=== PATIENT | male | born 1945 | race Caucasian/White ===

== ENCOUNTER 2018-01-06 05:48 | Inpatient (IN) | payer MEDICARE, BC ==
--- NOTE | 2017-12-24 14:08 | HP ---
HISTORY AND PHYSICAL: DATE OF ADMISSION: 01/06/18 The patient coming into [facility] on 01/06/18 for right total knee replacement. CHIEF COMPLAINT: Right knee pain and deformity with limited walking distance. HISTORY OF PRESENT ILLNESS: The patient is long retired from [employer], now 72 years old and increasingly disabled with bilateral knee pains and deformity. We have recommended a right total knee replacement. His walking distance is 2 blocks, he does stairs with a railing, and his knees both awaken him at night at different times. PAST MEDICAL HISTORY: No heart attack, no chest pain. He is able to walk up 2 flights of stairs without chest pain, without shortness of breath. MEDICATIONS: His daily meds include: 1. Vitamins. 2. Aspirin 81 mg. 3. He is on 1 antihypertensive medication. 4. He is on 1 cholesterol medication. 5. He is on probiotics. He will be bringing his medications when he comes to the hospital. ALLERGIES: No allergies. FAMILY HISTORY: Negative for diabetes, cardiac, and cancer. SOCIAL HISTORY: He quit smoking in 1982. He has an occasional alcoholic beverage. He lives with his spouse. He is retired. Seven stairs to get into his home. REVIEW OF SYSTEMS: No stomach problems. No past blood transfusions. No hepatitis or exposure to AIDS. No liver problems. No kidney problems. No bladder problems. No cancers. PHYSICAL EXAMINATION GENERAL: Well nourished, well developed, not acutely distressed. HEENT: The head is NC/AT. LUNGS: Clear. HEART: The heart is regular. S1, S2 normal. No murmurs or gallops. ABDOMEN: Round, soft, nontender. There is no organomegaly. EXTREMITIES: He does a straight leg raise easily on each leg. The right leg shows varus of the knee. Antalgic gait on the right. The right foot has intact dorsalis pedis and posterior tibial pulses, both are 2+. The right knee extension -3 to 5 degrees, flexion with 115 degrees. Stable MCL, LCL, Aline, and posterior drawer. There is some medial joint tenderness, small effusion, and the thigh and calf are soft. There is no swelling bilaterally of the legs, ankles, and feet. NEUROLOGIC: The cranial nerves are grossly intact. IMPRESSION: Severe right knee arthritis. PLAN: Right total knee replacement. The risks and complications have been reviewed with him as well as the general course of hospitalization and his questions were answered. [id number]/[facility] [place] #: [id number] STEPHANIE
[~2018-01-06 05:48] MED LIST: Buffered Lidocaine 0.9% SYRIN* 5 ML/SYR SYRINGE INTRADERM ONE; Tranexamic Acid 1,000 MG in NS 0.9% 50 ML* (outpatient use) IV SCH
--- OUTSIDE RECORDS SUMMARY | 2018-01-06 05:53 | XMS REPORT ---
:1945 External Reference #:[id number] Author Organization [employer] Address [address] [facility] [place] [address] Phone [phone] Care Team Providers Name Role Phone Aiden Stark MD Primary Care Physician Unavailable Payers Type Date Identification Numbers Payment Provider Subscriber Medicare Primary Policy Number: [id number] Medicare Ousmane Covington PayID: [id number] [address] [place] [address] Medigap Part B Policy Number: [id number] [facility] Ousmane Covington PayID: [id number] [address] [place] [address] Problems Date Description Provider Status Onset: 12/24/2017 Localized, primary osteoarthritis Lukas Sargent M.D. Active Family History Date Family Member(s) Problem(s) Comments General Unknown Social History Type Date Description Comments Lives With Spouse Occupation Unemployed ETOH Use Occasionally consumes alcohol Smoking Patient is a former smoker Exercise Type/Frequency Exercises regularly Allergies, Adverse Reactions, Alerts Date Description Reaction Status Severity Comments 06/16/2017 NKDA active Medications Medication Date Status Form Strength Qnty SIG Indications Ordering Provider Aspirin Adult Active Unknown Low Dose 00 Ibuprofen 200 Active Tablets 200mg 400-600mg Unknown 00 every 6 hours as needed for pain. Medications Administered in Office Medication Date Status Form Strength Qnty SIG Indications Ordering Provider Depomedrol Administered Injection Dirk Arie, 40MG 018 M.D. Depomedrol Administered Injection Dirk Arie, 40MG 018 M.D. Depomedrol Administered Injection Leda 40MG 018 FRANCIA Marie Depomedrol Administered Injection Leda 40MG 018 FRANCIA Marie Vital Signs Date Vital Result Comment 12/24/2017 Height 69 inches 5'9" Weight 235.00 lb BP Systolic 134 mmHg BP Diastolic 74 mmHg Respiratory Rate 20 /min Body Temperature 97.5 F Pain Level 2 BMI (Body Mass Index) 34.7 kg/m2 10/06/2017 Height 69 inches 5'9" Weight 217.00 lb BP Systolic 144 mmHg BP Diastolic 70 mmHg Respiratory Rate 20 /min Pain Level 6 BMI (Body Mass Index) 32.0 kg/m2 06/16/2017 Height 69 inches 5'9" Weight 217.00 lb Heart Rate 68 /min BP Systolic 138 mmHg BP Diastolic 78 mmHg Respiratory Rate 18 /min Body Temperature 96.7 F Pain Level 4 BMI (Body Mass Index) 32.0 kg/m2 Results Test Date Test Result H/L Range Note CBC Auto Diff 12/24/2017 White Blood Count 5.7 10^3/uL 3.5-10.8 1 Red Blood Count 4.56 10^6/uL 4.00-5.40 1 Hemoglobin 14.9 g/dL 14.0-18.0 1 Hematocrit 44 % 42-52 1 Mean Corpuscular Volume 96 fL High 80-94 1 Mean Corpuscular Hemoglobin 33 pg High 27-31 1 Mean Corpuscular HGB Conc 34 g/dL 31-36 1 Red Cell Distribution Width 13 % 10.5-15 1 Platelet Count 270 10^3/uL 150-450 1 Mean Platelet Volume 6.5 um3 Low 7.4-10.4 1 Abs Neutrophils 3.6 10^3/uL 1.5-7.7 1 Abs Lymphocytes 1.3 10^3/uL 1.0-4.8 1 Abs Monocytes 0.5 10^3/uL 0-0.8 1 Abs Eosinophils 0.2 10^3/uL 0-0.6 1 Abs Basophils 0 10^3/uL 0-0.2 1 Abs Nucleated RBC 0 10^3/uL 1 Granulocyte % 64.5 % 38-83 1 Lymphocyte % 22.7 % Low 25-47 1 Monocyte % 9.4 % High 0-7 1 Eosinophil % 2.7 % 0-6 1 Basophil % 0.7 % 0-2 1 Nucleated Red Blood Cells % 0.1 1 Urinalysis Profile 12/24/2017 Urine Color Straw 1 Urine Appearance Clear 1 Urine Specific [place] 1.004 Low 1.010-1.030 1 Urine pH 5.0 5-9 1 Urine Urobilinogen Negative Negative 1 Urine Ketones Negative Negative 1 Urine Protein Negative Negative 1 Urine Leukocytes Negative Negative 1 Urine Blood Negative Negative 1 Urine Nitrite Negative Negative 1 Urine Bilirubin Negative Negative 1 Urine Glucose Negative Negative 1 Comp Metabolic Panel 12/24/2017 Sodium 137 mmol/L 135-145 1 Potassium 4.2 mmol/L 3.5-5.0 1 Chloride 102 mmol/L 101-111 1 Co2 Carbon Dioxide 29 mmol/L 22-32 1 Anion Gap 6 mmol/L 2-11 1 Glucose 95 mg/dL 70-100 1 Blood Urea Nitrogen 15 mg/dL 6-24 1 Creatinine 1.11 mg/dL 0.67-1.17 1 BUN/Creatinine Ratio 13.5 8-20 1 Calcium 9.4 mg/dL 8.6-10.3 1 Total Protein 7.0 g/dL 6.4-8.9 1 Albumin 4.5 g/dL 3.2-5.2 1 Globulin 2.5 g/dL 2-4 1 Albumin/Globulin Ratio 1.8 1-3 1 Total Bilirubin 0.40 mg/dL 0.2-1.0 1 Alkaline Phosphatase 64 U/L 34-104 1 Alt 30 U/L 7-52 1 Ast 24 U/L 13-39 1 Egfr Non- 65.5 >60 1 Egfr 79.2 >60 1, 2 Inr/Protime 12/24/2017 Inr 0.89 0.77-1.02 1 Laboratory test finding 12/24/2017 Partial Thrombo Time 27.7 seconds 26.0 -36.3 1, 3 PTT Type & Screen 12/24/2017 Patient Blood Type A Positive 1 Antibody Screen NEGATIVE 1 1 AA 01/06 2 Because ethnic data is not always readily available, this report includes an eGFR for both -Americans and non- Americans. The National Kidney Disease Education Program (NKDEP) does not endorse the use of the MDRD equation for patients that are not between the ages of 18 and 70, are , have extremes of body size, muscle mass, or nutritional status, or are non- or non-. According to the National Kidney Foundation, irrespective of diagnosis, the stage of the disease is based on the level of kidney function: Stage Description GFR(mL/min/1.73 m(2)) 1 Kidney damage with normal or decreased GFR 90 2 Kidney damage with mild decrease in GFR 60-89 3 Moderate decrease in GFR 30-59 4 Severe decrease in GFR 15-29 5 Kidney failure <15 (or dialysis) 3 AA 01/06 Procedures Date CPT Code Description Status 10/06/2017 Inject/Drain Joint/Bursa Major W/O US Completed 06/16/2017 Inject/Drain Joint/Bursa Major W/O US Completed Encounters Type Date Location Provider CPT E/M Dx Office Visit 10/06/2017 10:15a [facility] M.D. 77781 M17.11 Roel M17.12 Office Visit 06/16/2017 9:00a [facility] M.D. 08430 M17.11 Roel M17.12 Plan of Care Future Appointment(s):02/04/2018 9:15 am - Lukas Sargent M.D. at [facility]01/06/2018 7:30 am - ELISABETH Mtz at [facility]01/06/2018 7:30 am - Lukas Sargent M.D. at [facility]12/24/2017 - Lukas Sargent M.D.M17.11 Unilateral primary osteoarthritis, right kneeFollow up:Right total knee replacement 01/06/18 Stay active and exercise your drcfiW66.12 Unilateral primary osteoarthritis, left knee
--- OUTSIDE RECORDS SUMMARY | 2018-01-06 05:53 | XMS REPORT ---
:1945 External Reference #:[id number] Author Organization [employer] Address [address] [place] [address] Phone [phone] Care Team Providers Name Role Phone Aiden Stark MD Primary Care Physician Unavailable Payers Type Date Identification Numbers Payment Provider Subscriber Medicare Primary Policy Number: [id number] Medicare Ousmane Covington PayID: [id number] [address] [place] [address] Mediwhiteside Part B Policy Number: [id number] [facility] Ousmane Covington PayID: [id number] [address] [place] [address] Problems Description No Information Family History Date Family Member(s) Problem(s) Comments [...] BMI (Body Mass Index) 32.0 kg/m2 Results Description No Information Procedures Date CPT Code Description Status 10/06/2017 Inject/Drain Joint/Bursa Major W/O US Completed 06/16/2017 Inject/Drain Joint/Bursa Major W/O US Completed Encounters Type Date Location Provider CPT E/M Dx Office Visit 10/06/2017 10:15a [facility] M[facility]. 47385 M17.11 Roel M17.12 Office Visit 06/16/2017 9:00a [facility] M.D. 56340 M17.11 Roel M17.12 Plan of Care Future Appointment(s):02/04/2018 9:15 am - Lukas Sargent M.D. at [facility]01/06/2018 7:30 am - ELISABETH Mtz at [facility]01/06/2018 7:30 am - Lukas Sargent M.D. at [facility]
[2018-01-06] MEDS ORDERED: Dexamethasone IV* 4 MG/ML 1 ML (4 MG) IV SLOW PU ONE (06:00)
[2018-01-06] MEDS ORDERED: Famotidine IV* 10 MG/ML 2 ML (20 mg) IV ONE (06:00)
[2018-01-06] MEDS ORDERED: Famotidine IV* 10 MG/ML 2 ML (20 mg) ONE (06:09)
[2018-01-06] MEDS ORDERED: ceFAZolin 2 GM PREMIX in ORs 2 GM/50 ML BAG IVPB ONE (06:09)
[2018-01-06] MEDS ORDERED: Dexamethasone IV* 4 MG/ML 1 ML (4 MG) ONE (06:09)
[2018-01-06] MEDS ORDERED: fentaNYL* 50 MCG/ML 2 ML VIAL (100 MCG VIAL) ONE (07:08)
[2018-01-06] MEDS ORDERED: Midazolam* 1 MG/ML 2 ML VIAL (2 MG) ONE (07:08)
[2018-01-06] MEDS ORDERED: Bupivacaine 0.25% W/EPI* 10 ML SDV ONE (07:10)
[2018-01-06] MEDS ORDERED: Bupivacaine 0.5% SDV PF* 30ML VIAL ONE (07:11)
[2018-01-06] MEDS ORDERED: ROPIVACAINE 5 MG/ML 30 ML BTL (0.5%) ONE (07:17)
[2018-01-06] MEDS ORDERED: Lidocaine 1%* 5 ML VIAL ONE (07:17)
[2018-01-06] MEDS ORDERED: Propofol* 10 MG/ML 20 ML BTL IV PUSH ONE ×2 (08:22→09:33)
[2018-01-06] MEDS ORDERED: Lidocaine 2% PF * 5 ML VIAL ONE (08:22)
[2018-01-06] MEDS ORDERED: Bupivacaine-MPF SPINAL* 7.5 MG/ML - 2ML AMP ONE (08:22)
[2018-01-06] MEDS ORDERED: Ondansetron INJ* 2 MG/ML VIAL IV PRN (10:17)
[2018-01-06] MEDS ORDERED: Naloxone* 0.4 MG/ML 1 ML VIAL IV PRN (10:17)
[2018-01-06] MEDS ORDERED: HYDROcodone/ACETAMIN 5-325 MG* 1 TAB PO PRN (10:17)
[2018-01-06] MEDS ORDERED: DiMENhydriNATE IV* 50 MG/ML VIAL IV PUSH PRN (10:17)
[2018-01-06] MEDS ORDERED: Acetaminophen TAB* 325 MG PO PRN (10:17)
[2018-01-06] MEDS ORDERED: Ketorolac INJ* 30 MG/ML 1 ML VIAL IV PRN (10:17)
[2018-01-06] MEDS ORDERED: fentaNYL* 50 MCG/ML 2 ML VIAL (100 MCG VIAL) IV PRN (10:17)
[2018-01-06] MEDS ORDERED: Morphine VIAL* 4 MG/ML VIAL (1 ml vial) IV PRN (10:17)
[2018-01-06] MEDS ORDERED: Cyclobenzaprine TAB* 10 MG PO PRN (10:39)
[2018-01-06] MEDS ORDERED: Magnesium Hydroxide LIQ* 30 ML UDC PO PRN (10:39)
[2018-01-06] MEDS ORDERED: diPHENhydraMINE PO* 25 MG PO PRN (10:39)
[2018-01-06] MEDS ORDERED: Ondansetron TAB* 4 MG PO PRN (10:39)
[2018-01-06] MEDS ORDERED: Morphine INJ* 4 MG/ML 1 ML SYRINGE (NEW SYRINGE VERSION) IV PRN (10:39)
[2018-01-06] MEDS ORDERED: Ondansetron ODT TAB* 4 MG PO PRN (10:39)
[2018-01-06] MEDS ORDERED: oxyCODONE TAB* 5 MG TAB PO PRN ×2 (10:39→13:33)
[2018-01-06] MEDS ORDERED: Acetaminophen TAB* 325 MG PO SCH (11:00)
--- NOTE | 2018-01-06 11:18 | RAD ---
INDICATION: Status post total right knee replacement surgery. COMPARISON: Comparison is made with a prior study from October 06, 2017. TECHNIQUE: 2 views of the right knee were obtained. FINDINGS: The patient is status post total right knee replacement surgery. The bones and prostheses are in normal alignment. There are 2 surgical drains noted anterior. There are also multiple surgical antionette present anterior in the midline. IMPRESSION: STATUS POST TOTAL RIGHT KNEE REPLACEMENT SURGERY.
[2018-01-06] MEDS: traMADol TAB* 50 MG PO SCH ×3 (13:38→23:38)
[2018-01-06] MEDS: Hydrochlorothiazide TAB* 25 MG PO SCH ×2 (16:33→20:47)
[2018-01-06] MEDS: Spironolactone TAB* 25 MG PO SCH ×2 (16:34→20:46)
[2018-01-06] MEDS: ceFAZolin 1 GM in Dextrose (*) 1 GM/50 ML BAG IVPB SCH ×2 (16:51→23:42)
[2018-01-06] MEDS: Acetaminophen TAB* 325 MG PO SCH ×4 (16:55→23:38)
--- NOTE | 2018-01-06 17:21 | CONS ---
CC: Dr. Stark; Dr. Sargent CONSULTATION REPORT: DATE OF CONSULTATION: 01/06/18 PATIENT OF: Dr. Lukas Sargent. CONSULTED TO: Dr. Felipa Duong. PRIMARY CARE PHYSICIAN: Dr. Aiden Stark. REASON FOR CONSULTATION: Medical comanagement. HISTORY OF PRESENT ILLNESS: Mr. Coivngton is a 72-year-old gentleman with past medical history signifi cant for hypertension, and hyperlipidemia, who was admitted to the hospital earlier today after a rig ht total knee replacement. The patient had been followed by the orthopedic group of [facility], and multipl e attempts to relieve his bilateral knee pain has failed conservative treatment. He was found to be a good candidate to proceed with elective right total knee replacement for which he was admitted [facility] today. The patient was transferred from recovery room to the surgical short-stay unit in a stabl e condition and given his history of hypertension and hyperlipidemia, we were asked to see the patien t for medical comanagement. At the time of consultation, the patient was resting comfortably on bed. He denies any chest pain, headache, dizziness, nausea, vomiting, or any other symptoms. PAST MEDICAL HISTORY: Significant for: 1. Hypertension. 2. Hyperlipidemia. 3. He denies any history of coronary artery disease. PAST SURGICAL HISTORY: Prior to his knee replacement today, he has never had any surgeries in the [facility]. CURRENT MEDICATIONS: His medications at home include: 1. Amlodipine 10 mg p.o. q.h.s. 2. Aspirin 81 mg p.o. daily. 3. Probiotic 1 tablet p.o. daily. 4. Multivitamins 1 tablet p.o. daily. 5. Aleve 220 mg 2 tablets p.o. daily. 6. Simvastatin 20 mg p.o. q.h.s. 7. Spironolactone/hydrochlorothiazide 25/25, 1 tablet p.o. q.h.s. ALLERGIES: He has no known drug allergies. FAMILY HISTORY: Noncontributory. SOCIAL HISTORY: The patient is a former smoker, who quit smoking back in 1982. He drinks alcohol ra rely. 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 He lives with his . He wishes to be a full code, and he listed his as a healthcare proxy carrier. REVIEW OF SYSTEMS: See HPI. Otherwise, 12-point review of systems were examined and they were essen tially negative. PHYSICAL EXAM: General: He is a pleasant, older male, appears healthy and in no acute distress or d iscomfort at the time of admission. Vitals: Most recent set of vitals with temperature 97.8, blood pressure 147/74, pulse of 73, respirations of 16 with O2 sat of 98% on room air. HEENT: Head is nor mocephalic with a small abrasion on the right parietal area due to injury hitting a cabinet 2 days ag o. There is no surrounding erythema or ecchymosis. EOMs intact. PERRLA. Oropharynx is pink and dariusz st. Neck: Supple. Trachea midline. No cervical adenopathy or thyromegaly. Lungs: Clear to auscu ltation bilaterally. Heart: Regular rate and rhythm. Normal S1 and S2 without rubs, murmurs, or ga llops. Back: With normal curvature. No CVA tenderness. Abdomen: Soft, round, nontender, and nond istended. There are no hernias, masses, or hepatosplenomegaly. Extremities: Without cyanosis, clubb ing, or edema. Neurologic: He is awake, alert, and oriented x3. Tongue is midline, hand environmental services attendant is equ al bilaterally, and sensation is intact throughout. Rectal Exam: Deferred at this time. IMPRESSION: A 72-year-old gentleman with past medical history significant for hypertension, and hype rlipidemia as well as osteoarthritis, who is postop day #0, status post right total knee replacement, who was admitted under orthopedic services and hospitalist were consulted for medical comanagement f or the following. ASSESSMENT AND PLAN: 1. Hypertension. The patient appears to be normotensive in the postoperative period. He has no com plaints of chest pain or headache. I will continue his home regimen of Norvasc and spironolactone/hy drochlorothiazide as prescribed. We will continue to monitor his vitals per protocol. 2. Hyperlipidemia. Since his simvastatin is nonformulary, we will hold off his statin therapy for t he 2 days he is in the hospital and he will resume it once discharged. The patient is currently on a spirin 325 mg once daily. 3. Status post right total knee replacement. Management per orthopedic team. The patient has a Fol ey catheter that would likely be discontinued tomorrow morning and we will start physical therapy marielena orrow as well. His discharge planning is to go home and receive a shelter visit as well as P T at home hopefully on the following day. 4. Code status. He wishes to be a full code. TIME SPENT: Approximately 45 minutes was spent on consultation of this patient, for which greater th an 50% of that time taking history and performing physical exam. I went on and discussed the case wi th my attending, who agreed to plan of care and we will follow him up accordingly. ELISABETH MARTIN [id number]/[facility] #: [id number]
[2018-01-06] MEDS ORDERED: amLODIPine TAB* 5 MG PO SCH (18:00)
[2018-01-06] MEDS ORDERED: Spironolactone/HCTZ 25-25 MG* 1 TAB PO SCH (18:00)
[2018-01-06] MEDS: Magnesium Hydroxide LIQ* 30 ML UDC PO SCH (20:47)
[2018-01-06] MEDS: Docusate CAP* 100 MG PO SCH (20:47)
[2018-01-07] MEDS: traMADol TAB* 50 MG PO SCH ×2 (05:21→11:20)
[2018-01-07] MEDS: Acetaminophen TAB* 325 MG PO SCH ×3 (05:23→13:54)
[2018-01-07 07:09] LABS: Hematocrit 35 % (42-52); Hemoglobin 11.9 g/dl (14.0-18.0); Mean Platelet Volume 6.6 um3 (7.4-10.4); Platelet Count 248 10^3/ul (150-450)
--- NOTE | 2018-01-07 07:34 | OP ---
DATE OF OPERATION: 01/06/18 - ROOM #350 DATE OF : 49 SURGEON: Lukas Sargent MD [employer]BILE HOME LABORER: ELISABETH Mtz, medical assistant secretary. ANESTHESIOLOGIST: Dr. Hermelindo Gutierrez. ANESTHESIA: Right femoral canal block and spinal with IV sedation. PRE-OPERATIVE DIAGNOSIS: Severe degenerative arthritis of the right knee with bone- on-bone medial arthritis. POST-OPERATIVE DIAGNOSIS: Severe degenerative arthritis of the right knee with [id number] medial arthritis. OPERATIVE PROCEDURE: Right total knee replacement. COMPONENTS USED: Soraya Persona Knee was utilized, the components were a size 9 femur, a size 38 patella, a size F tibia, and a 10 articular surface. COMPLICATIONS: There were no complications. DRAINS: Two drains, right knee, at the end of the case. BLOOD LOSS: 200 mL. REPLACEMENT: Crystalloid fluids. OPERATIVE INDICATION: Severe knee arthritis with persistent pain and disability. It has been no longer responsive to nonoperative care. DESCRIPTION OF PROCEDURE: The patient was brought to the operating room and placed in the operating table in the supine position. Following the administration of the anesthetic, the right leg was noted to have a slight flexion contracture at the knee. The right leg was wrapped with the proximal thigh tourniquet and the right thigh and knee were given a preliminary chlorhexidine prep and then a formal and final prep with ChloraPrep from the tourniquet to the tips of the toes. After prepping, draping, and sealing off, we did our universal protocol time-out confirming Ousmane Wayland and a plan for right total knee replacement. We all agreed and we proceeded. The skin incision went from 2 fingerbreadths proximal to the superior pole of the patella to the medial aspect of the tibial tubercle. The surgical care was done without tourniquet except at the cleanup and cementing phase of the case. The surgery was done with the hip and knee acutely flexed, the right foot on a padded foot piece. Careful hemostasis checked and achieved throughout the case utilizing electrocautery. The skin incision went from the medial aspect of the tibial tubercle to 2 fingerbreadths proximal to the superior pole of the patella. The skin and subcu divided down to the bursa. The bursa was traversed. The knee was then entered medial parapatellar dividing the soft tissues on the tibia down to the bone, 2 cm medial to the tibial tubercle and up to the joint line up to the medial patella and then staying in the quad tendon but as close to vastus medialis tendon as possible, going 3 to 4 cm proximal to the superior pole of the patella. The patella was made so that could be everted. The knee had clear goldish synovial fluid. There was complete eburnation of bone on the medial femoral condyle and the medial tibial plateau, some scooping out of the medial tibial plateau, osteophytes, intercondylar and medial tibial plateau. The remains of the anterior horn of the medial meniscus were excised. The anteromedial soft tissues on the tibia were elevated subperiosteally going around to the deep MCL and then to the posteromedial corner of the knee. Parapatellar synovectomy was completed. The lateral meniscus was carefully excised. The ACL and PCL were uplifted from their femoral origins. The tibia was made so that it could be subluxated forward from under the femur and the PCL was carefully excised. Great care was taken while working posteriorly with careful hemostasis, and careful hemostasis was achieved on the lateral geniculate during the case as well. The distal anterior femur was exposed subperiosteally for referencing and measuring. The proximal tibial cut was made first and our goal here was to have a tibial surface to be perpendicular to the long axis of the tibia and have a slight posterior slope. We tried to remove a few millimeters from the medial side and about a centimeter from the lateral side. The femoral intramedullary drill was then utilized and the femur was suctioned to discourage embolization. The distal femoral cutting guide was applied on one with 6 degrees of valgus and the distal cuts were completed. The femur was measured for a size 9. The 9 was applied and the anterior, posterior, and chamfering cuts were completed. At this stage, we had nice ligamentous balance with a 10-mm block in extension and 90 degrees of flexion. We finished removal of the medial meniscus carefully preserving the MCL, finished removal of the posterior horn of the lateral meniscus, the PCL, osteophyte on the medial femoral condyle posteriorly. The femur was then completed with the intercondylar cut out and the tibia was completed for a size F. The knee was articulated and extended with an F tibia, 10 articular surface, and the 9 femur with full knee extension, stable ligaments in extension, and stable ligaments in 90 degrees of flexion. The patella was cut flat. A 38 was chosen. Three drill holes were made, these were undercut and a lateral release was not necessary. The knee had full extension, nice full flexion past 130 degrees at this stage. The femoral canal was cleaned x6 with saline, suctioned empty, and then the bone plug was inserted. The final components were then opened up. The knee was cleaned entirely in extension with pulse saline irrigation. The bony surfaces were then cleaned with the knee in flexion. The cement was mixed. The components were cemented into position, the patella, followed by tibia, followed by femur, each was impacted, excess cement was removed and the knee was articulated and extended during the final hardening. After the cement was hardened, small pieces of cement were carefully removed. We checked posteriorly. The tourniquet was deflated. We infiltrated the pericapsular tissues with Marcaine 0.25% with epinephrine 30 mL, posteromedially, medially, and laterally. We then proceeded with closure. Careful hemostasis was achieved during the closure. We irrigated with saline several times during the closure. The quad mechanism closed with interrupted #1 Polysorb in [id number] fashion. More distally, we used 0 Polysorb. The deep bursa and deep fascia, 0 Polysorb, and then on the superficial subcu, we used 3-0 Polysorb, and then antionette on the skin. The knee was flexed and extended several times during the closure. Full extension, knee flexion well past 130 degrees, and the dorsalis pedis pulses noted to be 2+ at the end of the case. The distal part of the skin incision had psoriasis that we went through and incorporated into our closure as well. The knee was then washed and dried and antionette covered with Betadine-soaked release, sterile gauze, sterile Webril, cryotherapy cuff, ABD pads, and then a 6 -inch Pablo bandage loosely applied. The drains were brought out superolaterally and they were also dressed in the similar manner. The patient was returned to the recovery room in stable and satisfactory condition having tolerated the procedure very well. [id number]/[facility] #: [id number] STEPHANIE
[2018-01-07 07:36] LABS: EGFR Non-African American 66.2 (>60)
[2018-01-07] MEDS: ceFAZolin 1 GM in Dextrose (*) 1 GM/50 ML BAG IVPB SCH (08:17)
[2018-01-07] MEDS: Docusate CAP* 100 MG PO SCH (08:18)
[2018-01-07] MEDS: Magnesium Hydroxide LIQ* 30 ML UDC PO SCH (08:18)
[2018-01-07] MEDS ORDERED: Aspirin TAB* 325 MG PO SCH (09:00)
--- NOTE | 2018-01-07 09:41 | PN ---
Progress Note - Progress Note Date of Service: 01/07/18 SOAP: Subjective: [] Patient seen and examined at bedside. He feels well and desires DC home today. Denies CP, SOB, dizziness, nausea. He has worked with PT but has not done stairs yet today. Objective: []General: Well appearing, NAD RLE: Right knee dressing CDI. Dr Sargent removed drains this morning without complication. Thigh is soft. DF/PF intact, DP 2+, sensation intact distally. BL LE calves supple and nontender without erythema, edema or palpable cords Assessment: []POD 1 sp right total knee arthroplasty Plan: []WBAT PT/OT ASA 325 mg QD DC home today Sodium 132 today, will need recheck tomorrow Vital Signs Temp 97.8 F 01/07/18 07:26 Pulse 73 01/07/18 07:26 Resp 18 01/07/18 08:19 BP 131/64 01/07/18 07:26 Pulse Ox 99 01/07/18 07:59 Intake & Output 01/06/18 01/07/18 01/07/18 18:59 06:59 18:59 Intake Total 2190 4135 1298 Output Total 1400 3450 Balance 153 065 5992 Intake: IV Fluids 600 1005 1088 ABX - CEFAZOLIN 55 108 LR 600 950 980 Oral 1590 3130 210 Output: DHEERAJ #1 150 Hemovac Amount #1 150 200 Garcia 1200 3100 Residual 50 Garcia 16 Fr 50 Other: # Bowel Movements 0 Estimated Stool Amount Medium Laboratory Last Values Hgb 11.9 g/dl (14.0-18.0) L 01/07/18 06:44 Hct 35 % (42-52) L 01/07/18 06:44 Plt Count 248 10^3/ul (150-450) 01/07/18 06:44 MPV 6.6 um3 (7.4-10.4) L 01/07/18 06:44 Sodium 132 mmol/L (135-145) L 01/07/18 06:44 Potassium 3.7 mmol/L (3.5-5.0) 01/07/18 06:44 Chloride 99 mmol/L (101-111) L 01/07/18 06:44 Carbon Dioxide 28 mmol/L (22-32) 01/07/18 06:44 Anion Gap 5 mmol/L (2-11) 01/07/18 06:44 BUN 17 mg/dL (6-24) 01/07/18 06:44 Creatinine 1.10 mg/dL (0.67-1.17) 01/07/18 06:44 Est GFR ( Amer) 80.1 (>60) 01/07/18 06:44 Est GFR (Non-Af Amer) 66.2 (>60) 01/07/18 06:44 BUN/Creatinine Ratio 15.5 (8-20) 01/07/18 06:44 Glucose 111 mg/dL (70-100) H 01/07/18 06:44 Calcium 8.7 mg/dL (8.6-10.3) 01/07/18 06:44
[2018-01-07 15:51] VITALS: BP 149/72
--- NOTE | 2018-01-08 08:53 | DS ---
AMENDED REPORT NOW INCLUDES DESIGNATED COSIGNER DISCHARGE SUMMARY: DATE OF ADMISSION: 01/06/18 DATE OF DISCHARGE: ATTENDING PROVIDER: Dr. 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 OPERATIVE PROCEDURE: Right total knee arthroplasty. HISTORY: Mr. Covington is a 72-year-old male with severe right knee arthritis that has no longer been responsive to nonoperative care. He elected to undergo a right total knee arthroplasty. HOSPITAL COURSE: The patient was admitted to [facility] on . He underwent a right total knee arthroplasty without complications. On postop day 1 he was well-appearing and in no acute distress. Right knee dressing was changed, incision clean, dry, and intact. Thigh was soft. Dorsiflexion and plantarflexion intact. Sensation intact. DP 2+ bilateral. Calf supple and nontender without erythema, edema, or palpable cords. He seemed to be medically and orthopedically stable for discharge home. DISCHARGE MEDICATIONS: Include: 1. Simvastatin 20 mg p.o. q.p.m. 2. Multivitamin. 3. Probiotic. 4. Spironolactone/hydrochlorothiazide 25/25 one every night. 5. Amlodipine 10 mg q. p.m. 6. Acetaminophen 975 mg p.o. q.8 hours p.r.n. 7. Aspirin 325 mg p.o. daily for 30 days. 8. Docusate 100 mg p.o. b.i.d. 9. Oxycodone 5 mg p.o. q.6 hours p.r.n. 10. Tramadol 50 mg p.o. q.6 hours p.r.n. Please hold your aspirin 81 mg until you have stopped taking the aspirin 325 mg which will be in 30 days and then restart your normal dose of 81 mg aspirin. DISCHARGE PLAN: The patient will be weightbearing as tolerated. He may shower starting tomorrow. Do not submerge the wound. Home nurse to remove the antionette in 10 to 12 days. Aspirin 325 mg for 30 days to prevent blood clots , repeat sodium level tomorrow. Pain control, tramadol 50 mg one to two tabs every 6 hours as needed for pain, max of 8 per day. May use oxycodone 5 mg every 6 hours for severe breakthrough pain, max of 2 tabs per day. Followup with Dr. Sargent in 4 to 6 weeks, call sooner with any issues. ELISABETH BRITO [id number]/[facility] #: [id number] [facility]IAL HOSPITALErnesto
[2018-01-08] MEDS ORDERED: Bisacodyl SUPP* 10 MG SUPP PR PRN (10:39)
== END 2018-01-07 15:50 | disposition home health service (06) | DRG 470 ==
LOC: AA 05:48 → SSU 12:19
PROVIDERS: ADMIT Orthopaedic Surgery; ATTEND Orthopaedic Surgery
PROC: 0SRC0J9 Replacement of Right Knee Joint with Synthetic Substitute, Cemented, Open Approach (ICD-10-PCS; principal; 2018-01-06 07:30)
DX: M17.11 Unilateral primary osteoarthritis, right knee (principal); M25.761 Osteophyte, right knee; I10 Essential (primary) hypertension; E78.5 Hyperlipidemia, unspecified; Z79.82 Long term (current) use of aspirin; Z79.899 Other long term (current) drug therapy; Z87.891 Personal history of nicotine dependence
CPT/HCPCS: 36415; 71046; 80048; 85014; 85018; 85049; 88305; 88311; 90686; A9270-GY; C1776; G8978-GP-CI; G8978-GP-CJ; G8979-GP-CI; G8980-GP-CI; G8987-GO-CJ; G8988-GO-CJ; G8989-GO-CJ; J0690; J1100; J2250; J2704; J2795; J3010

== ENCOUNTER 2018-05-26 05:32 | Inpatient (IN) | payer MEDICARE, BC ==
[~2018-05-26 05:32] MED LIST changes: -Buffered Lidocaine 0.9% SYRIN* 5 ML/SYR SYRINGE INTRADERM ONE; +Buffered Lidocaine 1% SYRIN* 1 ML/SYRINGE INTRADERM ONE
--- OUTSIDE RECORDS SUMMARY | 2018-05-26 05:35 | XMS REPORT | Continuity of Care Document ---
:1945 External Reference #:[id number] Author Name Sasha Beckford Care Team Providers Name Role Phone Aiden Stark MD Primary Care Physician Unavailable Payers Date Identification Numbers Payment Provider Subscriber Policy Number: [id number] Medicare Ousmane Covington PayID: [id number] [address] [place] [address] Policy Number: [id number] [facility] Ousmane Covington PayID: [id number] [address] [place] [address] Advance Directives Description No Information Available Problems Date Description Provider Status Onset: 12/24/2017 Localized, primary osteoarthritis Lukas Sargent M.D. Active Family History Date Family Member(s) Observation Comments General Unknown Social History Type Date Description Comments Sex Unknown Lives With Spouse Occupation Unemployed ETOH Use Occasionally consumes alcohol Tobacco Use Start: Unknown End: Patient is a former smoker Unknown Smoking Status Reviewed: 05/20/18 Patient is a former smoker Exercise Type/Frequency Exercises regularly Allergies, Adverse Reactions, Alerts Description No Known Drug Allergies Medications Medication Date Status Form Strength Qnty SIG Indications Ordering Provider Amlodipine / Active Tablets 10mg 1 by mouth Unknown Besylate 0000 every day Clobetasol / Active Lotion 0.05% use twice a Unknown Propionate 0000 day Simvastatin 00// Active Tablets 20mg 1 by mouth Unknown 0000 every day Spironolactone / Active Tablets 25-25mg 1 by mouth Unknown /Hydrochloroth 0000 every day iazide Probiotic / Active Capsules 1 by mouth Unknown Acidophilus 0000 every day Multivitamin 00/00/ Active Tablets Unknown Adults 0000 Benadryl / Active Capsules 25mg as direct, Unknown Allergy 0000 prn Aspirin Adult / Active Tablets DR 81mg 30tab 1 by mouth Unknown Low Dose 0000 s every day Docusate / Active Capsules 100mg 1 tab every Unknown Sodium 0000 12 hours as needed for constipation Metamucil / Active Packet 51.7% take daily. Unknown Fiber 0000 Aspirin / Active Tablets 325mg take 1 by Unknown 0000 mouth twice a day for two weeks Colace 01/07/ Hx Capsules 100mg 90cap 1 tab every Dirk 2017 - s 12 hours as Arie, 03/01/ needed for M.D. 2018 constipation Tramadol HCL 01/07/ Hx Tablets 50mg 56tab 1-2 tablets Dirk 2017 s by mouth Arie, 03/01/ every 4- 6 M.D. 2018 hours as needed pain. max 8 per day Oxycodone HCL 01/07/ Hx Tablets 5mg 10tab 1 tab every Dirk 2017 - s 4-6 hours as Arie, 03/01/ needed for M.D. 2018 pain mdd 2. May alternate with tramadol. Wean off as soon as possible Aspirin 17/ Hx Tablets 325mg 30tab 1 tab every Dirk 2017 - 24 hours for Arie, days M.D. 2017 Aspirin Adult / Hx Unknown Low Dose 0000 - 2018 Ibuprofen 200 / Hx Tablets 200mg 400-600mg Unknown 0000 - every 6 hours as needed for 2019 pain. Medications Administered in Office Medication Date Status Form Strength Qnty SIG Indications Ordering Provider Depomedrol Administered Injection Dirk Arie, 40MG 018 M.D. Depomedrol Administered Injection Dirk Arie, 40MG 018 M.D. Depomedrol Administered Injection Dirk Arie, 40MG 018 M.D. Depomedrol Administered Injection Leda 40MG 018 FRANCIA Marie Depomedrol Administered Injection Leda 40MG 018 FRANCIA Marie Immunizations Description No Information Available Vital Signs Date Vital Result Comment 05/20/2018 10:26am Height 68.50 inches 5'8.50" Weight 243.50 lb Heart Rate 68 /min BP Systolic 144 mmHg BP Diastolic 80 mmHg Respiratory Rate 16 /min Pain Level 3 BMI (Body Mass Index) 36.5 kg/m2 04/01/2018 10:01am Height 70 inches 5'10" Weight 230.00 lb BP Systolic 130 mmHg BP Diastolic 80 mmHg Pain Level 0 BMI (Body Mass Index) 33.0 kg/m2 03/02/2018 10:05am Height 70 inches 5'10" Weight 230.00 lb Respiratory Rate 16 /min Body Temperature 96.2 F Pain Level 4 BMI (Body Mass Index) 33.0 kg/m2 02/09/2018 3:09pm Height 69 inches 5'9" Weight 235.00 lb BP Systolic 142 mmHg BP Diastolic 76 mmHg Respiratory Rate 20 /min Body Temperature 98.0 F Pain Level 4 BMI (Body Mass Index) 34.7 kg/m2 12/24/2017 8:14am Height 69 inches 5'9" Weight 235.00 lb BP Systolic 134 mmHg BP Diastolic 74 mmHg Respiratory Rate 20 /min Body Temperature 97.5 F Pain Level 2 BMI (Body Mass Index) 34.7 kg/m2 10/06/2017 10:03am Height 69 inches 5'9" Weight 217.00 lb BP Systolic 144 mmHg BP Diastolic 70 mmHg Respiratory Rate 20 /min Pain Level 6 BMI (Body Mass Index) 32.0 kg/m2 06/16/2017 9:08am Height 69 inches 5'9" Weight 217.00 lb Heart Rate 68 /min BP Systolic 138 mmHg BP Diastolic 78 mmHg Respiratory Rate 18 /min Body Temperature 96.7 F Pain Level 4 BMI (Body Mass Index) 32.0 kg/m2 Results Test Date Facility Test Result H/L Range Note CBC Auto Diff 12/24/2017 [facility] White Blood 5.7 10^3/uL N 3.5-10.[address] [place] [address] [phone] Red Blood Count 4.56 10^6/uL N 4.00-5.40 Hemoglobin 14.9 g/dL N 14.0-18.0 Hematocrit 44 % N 42-52 Mean Corpuscular Volume 96 fL High 80-94 Mean Corpuscular Hemoglobin 33 pg High 27-31 Mean Corpuscular HGB Conc 34 g/dL N 31-36 Red Cell Distribution Width 13 % N 10.5-15 Platelet Count 270 10^3/uL N 150-450 Mean Platelet Volume 6.5 um3 Low 7.4-10.4 Abs Neutrophils 3.6 10^3/uL N 1.5-7.7 Abs Lymphocytes 1.3 10^3/uL N 1.0-4.8 Abs Monocytes 0.5 10^3/uL N 0-0.8 Abs Eosinophils 0.2 10^3/uL N 0-0.6 Abs Basophils 0 10^3/uL N 0-0.2 Abs Nucleated RBC 0 10^3/uL Granulocyte % 64.5 % N 38-83 Lymphocyte % 22.7 % Low 25-47 Monocyte % 9.4 % High 0-7 Eosinophil % 2.7 % N 0-6 Basophil % 0.7 % N 0-2 Nucleated Red Blood Cells % 0.1 Urinalysis Profile 12/24/2017 [facility] Urine Color [address] [place] [address] [phone] Urine Appearance Clear Urine Specific [place] 1.004 Low 1.010-1.030 Urine pH 5.0 N 5-9 Urine Urobilinogen Negative Negative Urine Ketones Negative Negative Urine Protein Negative Negative Urine Leukocytes Negative Negative Urine Blood Negative Negative Urine Nitrite Negative Negative Urine Bilirubin Negative Negative Urine Glucose Negative Negative Comp Metabolic Panel 12/24/2017 [facility] Sodium 137 mmol/L N 135-145 [address] [place] [address] [phone] Potassium 4.2 mmol/L N 3.5-5.0 Chloride 102 mmol/L N 101-111 Co2 Carbon Dioxide 29 mmol/L N 22-32 Anion Gap 6 mmol/L N 2-11 Glucose 95 mg/dL N 70-100 Blood Urea Nitrogen 15 mg/dL N 6-24 Creatinine 1.11 mg/dL N 0.67-1.17 BUN/Creatinine Ratio 13.5 N 8-20 Calcium 9.4 mg/dL N 8.6-10.3 Total Protein 7.0 g/dL N 6.4-8.9 Albumin 4.5 g/dL N 3.2-5.2 Globulin 2.5 g/dL N 2-4 Albumin/Globulin Ratio 1.8 N 1-3 Total Bilirubin 0.40 mg/dL N 0.2-1.0 Alkaline Phosphatase 64 U/L N 34-104 Alt 30 U/L N 7-52 Ast 24 U/L N 13-39 Egfr Non- 65.5 >60 Egfr 79.2 >60 2 Inr/Protime 12/24/2017 [facility] Inr 0.89 N 0.77-1.[address] [place] [address] [phone] Laboratory test 12/24/2017 [facility] Partial 27.7 seconds N 26.0-36.[address] [place] [address] PTT [phone] Type & Screen 12/24/2017 [facility] Patient A Positive [address] [place] [address] [phone] Antibody Screen NEGATIVE Urine Culture And 12/24/2017 [facility] Urine Culture SEE RESULT [address] [place] [address] [phone] 1 AA 01/06 2 Because ethnic data [...] failure <15 (or dialysis) 3 AA 01/06 4 SEE RESULT BELOW Name: OUSMANE COVINGTON SR : [address]: Lukas Sargent MD Acct: [id number] Unit: [id number] AGE: 72 Location: PAT Re12/24/17 SEX: M Status: REG REF SPEC: [id number] WATSON: 12/24/17 [facility] DR: Lukas Sargent MD REQ: [id number] RECD: 12/24/17 STATUS: GARY HALE DR: Aiden Stark MD _ SOURCE: URINE SPDESC: ORDERED: Urine Culture COMMENTS: GAVIOTA 01/06 QUERIES: Urine Source: Clean Catch Procedure Result Reported Site Urine Culture Final 12/25/17- 1155 ML No Growth (<1,000 CFU/mL) * ML - Main Lab . END OF REPORT DEPARTMENT OF PATHOLOGY, [address] [place] [address] Castillo Coleman M.D. Director [facility] # [id number] Procedures Date Code Description Status 03/02/2018 Inject/Drain Joint/Bursa Major W/O US Completed 01/06/2018 39730 TKR Total Knee Replacement Completed 01/06/201878330 TKR Total Knee Replacement Completed 12/24/2017 84356 EKG, Interpretation Only Completed 10/06/2017 Inject/Drain Joint/Bursa Major W/O US Completed 06/16/2017 Inject/Drain Joint/Bursa Major W/O US Completed Encounters Type Date Location Provider Dx Diagnosis Office Visit 04/01/2018 [facility] Lukas Sargent M.D. M17.12 Unilateral 10:15a Of [facility]. primary osteoarthritis, left knee Office Visit 01/06/2018 [facility] Z47.89 Encounter for 10:43a Assoc,ELISABETH Nice other orthopedic Hospitalists aftercare Z96.651 Presence of right artificial knee joint I10 Essential (primary) hypertension E78.5 Hyperlipidemia, unspecified Office Visit 12/24/2017 [facility] Lukas Sargent, M17.11 Unilateral primary 8:30a Services Of M.D. osteoarthritis, right C.M.A. knee M17.12 Unilateral primary osteoarthritis, left knee Office Visit 10/06/2017 [facility] Lukas Sargent M17.11 Unilateral primary 10:15a Services Of MBhaskarDBhaskar osteoarthritis, right C.M.A. knee M17.12 Unilateral primary osteoarthritis, left knee Office Visit 06/16/2017 Orthopedic Lukas Sargent M17.11 Unilateral primary 9:00a Services Of M.D. osteoarthritis, right C.M.A. knee M17.12 Unilateral primary osteoarthritis, left knee Plan of Treatment Future Appointment(s):06/17/2018 10:45 am - Lukas Sargent M.D. at [facility]05/26/2018 7:30 am - ELISABETH Mtz at [facility]05/26/2018 7:30 am - Lukas Sargent M.D. at [facility]05/20/2018 - Domitila Izquierdo, [facility]-CM17.12 Unilateral primary osteoarthritis, left kneeFollow up:Follow up: 3-4 weeks post op with Arie
--- OUTSIDE RECORDS SUMMARY | 2018-05-26 05:35 | XMS REPORT | Continuity of Care Document ---
:1945 External Reference #:[id number] Author Name Taya Cordon Care Team Providers Name Role Phone Aiden Stark MD Primary Care Physician Unavailable Payers Date Identification Numbers Payment Provider Subscriber Policy Number: [id number] Medicare Rosa Covington PayID: [id number] [address] [place] [address] Policy Number: [id number] [facility] Rosa Covington PayID: [id number] [address] [place] [address] Advance Directives Description No Information Available Problems [...] Tablets 5mg 10tab 1 tab every Dirk 2018 - s 4-6 hours as Arie, 03/01/ [...] Date Facility Test Result H/L Range Note Inr/Protime 05/22/2018 [facility] Inr 0.86 N 0.77-1.[address] [place] [address] [phone] Laboratory test 05/22/2018 [facility] Partial 27.3 seconds N 26.0-36.[address] [place] [address] PTT [phone] Urinalysis 05/22/2018 [facility] Urine [place] [address] [phone] Urine Appearance Clear Urine Specific [place] 1.009 Low 1.010-1.030 Urine pH 6.0 N 5-9 Urine Urobilinogen Negative Negative Urine Ketones Negative Negative Urine Protein Negative Negative Urine Leukocytes Negative Negative Urine Blood Negative Negative Urine Nitrite Negative Negative Urine Bilirubin Negative Negative Urine Glucose Negative Negative CBC Auto Diff 05/22/2018 [facility] White Blood 5.6 10^3/uL N 3.5-10.[address] [place] [address] [phone] Red Blood Count 4.53 10^6/uL N 4.00-5.40 Hemoglobin 14.5 g/dL N 14.0-18.0 Hematocrit 42 % N 42-52 Mean Corpuscular Volume 94 fL N 80-94 Mean Corpuscular Hemoglobin 32 pg High 27-31 Mean Corpuscular HGB Conc 34 g/dL N 31-36 Red Cell Distribution Width 13 % N 10.5-15 Platelet Count 276 10^3/uL N 150-450 Mean Platelet Volume 6.8 fL Low 7.4-10.4 Abs Neutrophils 3.4 10^3/uL N 1.5-7.7 Abs Lymphocytes 1.3 10^3/uL N 1.0-4.8 Abs Monocytes 0.6 10^3/uL N 0-0.8 Abs Eosinophils 0.2 10^3/uL N 0-0.6 Abs Basophils 0 10^3/uL N 0-0.2 Abs Nucleated RBC 0 10^3/uL Granulocyte % 61.0 % Lymphocyte % 23.4 % Monocyte % 11.2 % Eosinophil % 3.8 % Basophil % 0.6 % Nucleated Red Blood Cells % 0 Comp Metabolic Panel 05/22/2018 [facility] Sodium 138 mmol/L N 135-[address] [place] [address] [phone] Potassium 4.2 mmol/L N 3.5-5.0 Chloride 102 mmol/L N 101-111 Co2 Carbon Dioxide 29 mmol/L N 22-32 Anion Gap 7 mmol/L N 2-11 Glucose 106 mg/dL High 70-100 Blood Urea Nitrogen 26 mg/dL High 6-24 Creatinine 1.58 mg/dL High 0.67-1.17 BUN/Creatinine Ratio 16.5 N 8-20 Calcium 9.3 mg/dL N 8.6-10.3 Total Protein 7.1 g/dL N 6.4-8.9 Albumin 4.5 g/dL N 3.2-5.2 Globulin 2.6 g/dL N 2-4 Albumin/Globulin Ratio 1.7 N 1-3 Total Bilirubin 0.40 mg/dL N 0.2-1.0 Alkaline Phosphatase 66 U/L N 34-104 Alt 22 U/L N 7-52 Ast 23 U/L N 13-39 Egfr Non- 43.6 >60 Egfr 52.7 >60 3 Type & Screen 05/22/2018 [facility] Patient Blood Type A Positive [address] [place], [place] [address] [phone] Antibody Screen NEGATIVE Urine Culture And 05/22/2018 [facility] Urine Culture SEE RESULT [address] [place] [address] [phone] Comp Metabolic 12/24/2017 [facility] Sodium 137 mmol/L N 135- 14 [address] [place] [address] [phone] Potassium 4.2 mmol/L N 3.5-5.0 Chloride 102 [...] Egfr Non- 65.5 >60 Egfr 79.2 >60 6 Inr/Protime 12/24/2017 [facility] Inr 0.89 N 0.77-1.[address] [place] [address] [phone] Laboratory test 12/24/2017 [facility] Partial 27.7 seconds N 26.0-36.3 [address] [place] [address] PTT [phone] Type & Screen 12/24/2017 [facility] Patient A Positive [address] [place] [place] [address] [phone] Antibody Screen NEGATIVE Urine Culture And 12/24/2017 [facility] Urine Culture SEE RESULT [address] [place] [address] [phone] Urinalysis Profile 12/24/2017 [facility] Urine Color Straw [address] [place] [address] [phone] Urine Appearance Clear Urine Specific [place] 1.004 Low 1.010-1.030 Urine pH 5.0 N 5-9 Urine Urobilinogen Negative Negative Urine Ketones Negative Negative Urine Protein Negative Negative Urine Leukocytes Negative Negative Urine Blood Negative Negative Urine Nitrite Negative Negative Urine Bilirubin Negative Negative Urine Glucose Negative Negative CBC Auto Diff 12/24/2017 [facility] White Blood 5.7 10^3/uL N 3.5-10.[address] [place] [address] [phone] Red Blood Count 4.56 10^6/uL N 4.00-5.40 [...] 0-2 Nucleated Red Blood Cells % 0.1 1 AA 3/5 2 AA 3/5 3 Because ethnic data is not always readily [...] 15-29 5 Kidney failure <15 (or dialysis) 4 SEE RESULT BELOW Name: ROSA COVINGTON SR : [address]: Lukas Sargent MD Acct: [id number] Unit: [id number] AGE: 72 Location: [facility] Re05/22/18 SEX: M Status: REG REF SPEC: [id number] WATSON: 05/22/18-[address]: Lukas Sargent MD REQ: [id number] RECD: 05/22/18 STATUS: COMP _ SOURCE: URINE SPDESC: ORDERED: Urine Culture COMMENTS: GAVIOTA05/26 QUERIES: Urine Source: Clean Catch Procedure Result Reported Site Urine Culture Final 05/23/18- 1230 ML Few Enterobacteriacae; possible contamination. * ML - Main Lab . END OF REPORT DEPARTMENT OF PATHOLOGY, [address] [place] [address] Castillo Coleman M.D. Director [facility] # [id number] 01/06 6 Because ethnic data is not always readily [...] 15-29 5 Kidney failure <15 (or dialysis) 7 01/06 8 SEE RESULT BELOW Name: CRISTIANROSA SR : [address]: Lukas Sargent MD Acct: [id number] Unit: [id number] AGE: 72 Location: [facility] Re12/24/17 SEX: M Status: REG REF SPEC: [id number] WATSON: 12/24/[address] [facility] [address]: Lukas Sargent MD REQ: [id number] RECD: 12/24/17120 STATUS: GARY HALE DR: Aiden Stark MD _ SOURCE: URINE SPDESC: ORDERED: Urine Culture COMMENTS: 01/06 QUERIES: Urine Source: Clean Catch Procedure Result Reported Site Urine Culture Final 12/25/17- 1155 ML No Growth (<1,000 CFU/mL) * ML - Main Lab . END OF REPORT DEPARTMENT OF PATHOLOGY, [address] [place] [address] Castillo Coleman M.D. Director [facility] # [id number] Procedures Date Code Description Status 03/02/2018 Inject/Drain Joint/Bursa Major W/O US Completed 01/06/2018 33524 TKR Total Knee Replacement Completed 01/06/2018 66085 TKR Total Knee Replacement Completed 12/24/2017 62960 EKG, Interpretation Only Completed 10/06/2017 Inject/Drain Joint/Bursa Major W/O US Completed 06/16/2017 Inject/Drain Joint/Bursa Major W/O US Completed Encounters Type Date Location Provider Dx Diagnosis Office Visit 04/01/2018 [facility] Lukas Sargent M.D. M17.12 Unilateral 10:15a Of [place] primary osteoarthritis, left knee Office Visit 01/06/2018 [facility] Z47.89 Encounter for 10:43a lisa Oro PA other orthopedic Hospitalists aftercare Z96.651 Presence of right artificial knee joint I10 Essential (primary) hypertension E78.5 Hyperlipidemia, unspecified Office Visit 12/24/2017 Orthopedic Lukas Sargent, M17.11 Unilateral primary 8:30a Services Of M.D. osteoarthritis, right C.M.A. knee M17.12 Unilateral primary osteoarthritis, left knee Office Visit 10/06/2017 Orthopedic Lukas Sargent, M17.11 Unilateral primary 10:15a Services Of M.D. osteoarthritis, right C.M.A. knee M17.12 Unilateral primary osteoarthritis, left knee Office Visit 06/16/2017 Orthopedic Lukas Sargent, M17.11 Unilateral primary 9:00a Services Of M.D. osteoarthritis, right C.M.A. knee M17.12 Unilateral primary osteoarthritis, left knee Plan of Treatment Future Appointment(s):06/17/2018 10:45 am - Lukas Sargent M.D. at [facility]05/26/2018 7:30 am - ELISABETH Mtz at [facility]05/26/2018 7:30 am - Lukas Sargent M.D. at [facility]05/20/2018 - Domitila Izquierdo [facility]-CM17.12 Unilateral primary osteoarthritis, left kneeFollow up:Follow up: 3-4 weeks post op with Arie
[2018-05-26] MEDS ORDERED: Dexamethasone IV* 4 MG/ML 1 ML (4 MG) IV SLOW PU ONE (06:00)
[2018-05-26] MEDS ORDERED: Acetaminophen IV 1GM/100ML * 1,000 MG/100 ML VIAL IVPB ONE (06:00)
[2018-05-26] MEDS ORDERED: Famotidine IV* 10 MG/ML 2 ML (20 mg) IV ONE (06:00)
[2018-05-26] MEDS ORDERED: Gabapentin CAP(*) 300 MG PO ONE (06:00)
[2018-05-26] MEDS ORDERED: Lactated Ringers 1000 ML Bag* 1,000 ML IV SCH (06:00)
[2018-05-26] MEDS ORDERED: celeCOXIB CAP* 200 MG PO ONE (06:00)
[2018-05-26] MEDS ORDERED: celeCOXIB CAP* 100 MG ONE (06:12)
[2018-05-26] MEDS ORDERED: Gabapentin CAP(*) 300 MG ONE (06:12)
[2018-05-26] MEDS ORDERED: ceFAZolin 2 GM PREMIX in ORs 2 GM/50 ML BAG IVPB ONE (06:12)
[2018-05-26] MEDS ORDERED: Dexamethasone IV* 4 MG/ML 1 ML (4 MG) ONE (06:12)
[2018-05-26] MEDS ORDERED: Famotidine IV* 10 MG/ML 2 ML (20 mg) ONE (06:13)
[2018-05-26] MEDS ORDERED: Acetaminophen IV 1GM/100ML * 100 ML ONE (06:15)
[2018-05-26] MEDS ORDERED: Bupivacaine 0.5% W/EPI SDV* 30 ML VIAL ONE (06:50)
[2018-05-26] MEDS ORDERED: Ondansetron INJ* 2 MG/ML VIAL ONE (07:04)
[2018-05-26] MEDS ORDERED: Midazolam* 1 MG/ML 5 ML VIAL (5 MG) ONE ×3 (07:04→11:41)
[2018-05-26] MEDS ORDERED: KETAMINE HCL* 50 MG/ML 10 ML VIAL ONE (07:04)
[2018-05-26] MEDS ORDERED: Bupivacaine 0.5% SDV PF* 30ML VIAL ONE (07:04)
[2018-05-26] MEDS ORDERED: Propofol* 10 MG/ML 20 ML BTL ONE ×2 (07:04→09:57)
[2018-05-26] MEDS ORDERED: Phenylephrine INJ* 10 MG/ML 1 ML VIAL (10 MG) ONE (07:05)
[2018-05-26] MEDS ORDERED: ROPIVACAINE 5 MG/ML 30 ML BTL (0.5%) ONE (07:16)
[2018-05-26] MEDS ORDERED: fentaNYL* 50 MCG/ML 2 ML VIAL (100 MCG VIAL) IV PRN (09:16)
[2018-05-26] MEDS ORDERED: HYDROmorphone INJ1* 1 MG/ML SYRINGE IV PRN (09:16)
[2018-05-26] MEDS ORDERED: Naloxone* 0.4 MG/ML 1 ML VIAL IV PRN (09:16)
[2018-05-26] MEDS ORDERED: Ondansetron INJ* 2 MG/ML VIAL IV PRN ×2 (09:16→10:38)
[2018-05-26] MEDS ORDERED: DiMENhydriNATE IV* 50 MG/ML VIAL IV PUSH PRN (09:16)
[2018-05-26] MEDS ORDERED: Morphine VIAL* 4 MG/ML VIAL (1 ml vial) IV PRN (10:38)
[2018-05-26] MEDS ORDERED: Cyclobenzaprine TAB* 10 MG PO PRN (10:38)
[2018-05-26] MEDS ORDERED: diPHENhydraMINE IV* 50 MG/ML 1 ml VIAL (BENADRYL) IV PRN (10:38)
[2018-05-26] MEDS ORDERED: diPHENhydraMINE PO* 25 MG PO PRN (10:38)
[2018-05-26] MEDS ORDERED: Lidocaine 2% PF * 5 ML VIAL ONE (11:41)
[2018-05-26] MEDS: Lactated Ringers 1000 ML Bag* 1,000 ML IV SCH ×2 (12:24→22:36)
[2018-05-26] MEDS ORDERED: Propofol* 500 MG/50 ML BTL ONE ×2 (12:26→13:09)
[2018-05-26] MEDS: oxyCODONE TAB* 5 MG TAB PO PRN ×2 (13:23→18:04)
--- NOTE | 2018-05-26 13:43 | CONS ---
CC: Dr. Aiden Stark; Dr. Lukas Sargent * CONSULTATION REPORT: DATE OF CONSULT: 05/26/18 PRIMARY CARE PROVIDER: Dr. Aiden Stark. REQUESTING PHYSICIAN IN CONSULT: Dr. Lukas Sargent. ATTENDING PHYSICIAN: Dr. Ramírez Marquez (dictated by Odilia Lazaro NP). REASON FOR CONSULT: Co-medical management. HISTORY OF PRESENT ILLNESS: I will refer you to the history and physical by ELISABETH Cosme, for complete details, but in short, Mr. Covington is a 72-year- old male with past medical history of hypertension and hyperlipidemia, who presents to [facility] today for an elective left total knee arthroplasty. He underwent a right total knee arthroplasty in December 2017. He recovered from that surgery well. Thus since that time, his left knee has had an increasing amount of pain. He ultimately failed conservative management and elected to proceed with the left total knee arthroplasty with Dr. Sargent. He has a history of hypertension for which he has taken amlodipine, spironolactone, and hydrochlorothiazide for a number of years. He reports that his blood pressure is well controlled on these medications. He denies any dizziness, headache, or changes in vision. He also taken simvastatin for a number of years for his hyperlipidemia. He reports that his primary checks his lipids early during his physical and that his last lipid panel showed good control. On my exam in the PACU, the patient denies any pain. He reports a "heavy" sensation in his lower extremities, though no discomfort. His is at the bedside and participating in the exam. PAST MEDICAL HISTORY: 1. Hypertension. 2. Hyperlipidemia. PAST SURGICAL HISTORY: 1. Right total knee arthroplasty, December 2017. 2. Left total knee arthroplasty, today. HOME MEDICATIONS: 1. Acetaminophen 975 mg p.o. q.8 hours p.r.n. pain. 2. Amlodipine 10 mg p.o. at bedtime. 3. Aspirin 81 mg p.o. at bedtime. 4. Probiotic 1 tab p.o. at bedtime. 5. Multivitamin 1 tablet p.o. at bedtime. 6. Simvastatin 20 mg p.o. at bedtime. 7. Spironolactone/hydrochlorothiazide 25/25 mg 1 tab p.o. at bedtime. ALLERGIES: LISINOPRIL. FAMILY HISTORY: The patient denies any family history of heart disease, diabetes, or cancer. SOCIAL HISTORY: The patient has a distant smoking history. He reports a rare alcohol use less than once per year. He denies any recreational drug use. He is retired and lives at home with his . His , Gianna, will be his surrogate decision maker in the event he is unable to make his own decisions. REVIEW OF SYSTEMS: An 11-point review of systems was performed and all the pertinent positive and negative findings are in the HPI. All other systems are negative. PHYSICAL EXAM: General: Mr. Covington is a well-developed, well-nourished overweight, elderly white male laying in bed in no acute distress. He appears his stated age. Vital Signs: Temp 96.8, heart rate 61, respiratory rate 17, oxygen saturations 100% on 2 L nasal cannula, blood pressure 127/75. HEENT: Head is atraumatic, normocephalic. Visual buckley are grossly intact. Sclerae without icterus. Oral mucous membranes are most and without lesions. Neck: Full range of motion. Trachea midline. Respiratory: Symmetrical chest expansion. No chest wall deformities. Lungs: Clear to auscultation throughout. No rhonchi, wheezes, or rubs. Cardiovascular: Regular rate and rhythm. S1, S2 present. No murmurs, rubs, or gallops. Extremities: Skin warm and smooth bilaterally. No edema. No clubbing or cyanosis. Pedal pulses are 2+ bilaterally. Musculoskeletal: Full range of motion of upper extremities. Lower lower extremities were not tested. Abdomen: Soft, nontender to palpation. Bowel sounds normoactive throughout. Neuro: Awake, alert, and oriented x4. Cranial nerves II through XII grossly intact. Moves all extremities. Skin: There is a surgical dressing intact to the left knee. DIAGNOSTIC STUDIES/LAB DATA: The patient had lab work on 05/22/18 which shows WBC 5.6, RBC 4.53, hemoglobin 14.5, hematocrit 42, platelets 276. INR 0.86. Sodium 138, potassium 4.2, chloride 102, carbon dioxide 29, BUN 26, creatinine 1.58, glucose is 106. Urinalysis unremarkable. Chest x-ray on 05/22/18 reveals there is no active cardiopulmonary disease. EKG on 05/22/18 shows normal sinus rhythm with a rate of 52, QTc 418. ASSESSMENT AND PLAN: Mr. Covington is a 72-year-old male with past medical history of hypertension and hyperlipidemia who presents to [facility] today for an elective left total knee arthroplasty. The patient will be admitted inpatient for: 1. Status post left total knee arthroplasty. Management per Ortho. 2. Hypertension. In the PACU, the patient's blood pressure was well controlled , around 120/70. I would recommend that he restart his amlodipine, spironolactone, and hydrochlorothiazide tomorrow so long as he is not hypotensive. 3. Hyperlipidemia. I would recommend continuing the patient's simvastatin. There is no need to check lipid panel at this point. 4. Elevated creatinine. The patient's creatinine on 05/22/18 was elevated at 1.58. The last creatinine record is from 01/07/18 and was 1.1. It is not clear what the elevation is from, though the patient may have been slightly dehydrated if he was fasting for the labs. At this point, I am not extremely concerned. I would recommend checking a BMP tomorrow, though I suspect with the fluids he received after surgery, his creatinine will likely normalize tomorrow. 5. FEN: Fluids will be under the discretion of the orthopedic team. The patient can have a regular diet. 6. Code status. The patient will be a full code. 7. DVT prophylaxis. Per Ortho. Thank your for this consultation, we will continue to follow along distantly to ensure the patient's blood pressure is under control and his creatinine returns to baseline. TIME SPENT: Approximately 45 minutes was spent on this consultation, greater than half of that time spent [id number] with the patient and his obtaining my history, performing my physical exam, and reviewing the plan of care. This case has been reviewed with my attending, Dr. Marquez, who is in agreement with the plan of care. ODILIA LAZARO, STATIC BALANCER [id number]/[facility] #: [id number] STEPHANIE
--- NOTE | 2018-05-26 14:47 | OP ---
CC: Dr. Aiden Stark, [facility] * DATE OF OPERATION: 05/26/18 - ROOM #343 DATE OF : 49 SURGICAL CARE: Left knee. SURGEON: Lukas Sargent MD ASSISTANTS: 1. ELISABETH Mtz, field assistant. 2. Dee Arroyo, surgical training specialist. ANESTHESIOLOGIST: Dr. Jarret Powell. ANESTHESIA: Left femoral canal block and spinal anesthetic with IV sedation. PRE-OP DIAGNOSIS: Severe arthritis of the left knee with [id number]-og-uril medially and varus alignment. POST-OP DIAGNOSIS: Severe arthritis of the left knee with [id number] medially and varus alignment. OPERATIVE PROCEDURE: Left total knee replacement. IMPLANTS: The Soraya Persona knee was utilized to size 10 femur, a size 38 patella, a size G tibia with a small extension, and a size 10 articular surface. COMPLICATIONS: There were no complications. DRAINS: Two drains, left knee, at the end of the case. BLOOD LOSS: 200 mL. REPLACEMENT: Crystalloid fluids. OPERATIVE INDICATIONS: Severe arthritis of the knee with [id number] medially with a malalignment and the patient has had years of trouble and has failed nonoperative care. DESCRIPTION OF PROCEDURE: The patient was, after being in the holding area where the canal block was done, brought to the operating room, placed on the operating room table in supine position, then into a sitting position for the anesthetic, then returned to the supine position. A Garcia catheter was carefully inserted and the left proximal thigh was wrapped with a tourniquet. The left dorsalis pedis and posterior tibial pulses were noted to be 2+. The left had a slight flexion contracture. The proximal thigh tourniquet was applied on the left side. The leg was given a preliminary chlorhexidine prep and then a final formal prep from the tourniquet to the tips of the toes. After prepping, draping, and sealing off, we did our universal protocol time- out confirming Ousmane Covington and the plan for left total knee replacement. We all agreed and we proceeded. The surgical care was done with the hip and knee acutely flexed with the left foot on a padded footpiece and no tourniquet was utilized until the cleanup and cementing phase of the case, which was about 30 minutes. The skin incision went from the medial aspect of the tibial tubercle to 2 fingerbreadths proximal to the superior pole of the patella. Careful hemostasis was checked and achieved throughout the case utilizing electrocautery. Skin and subcu divided down to the prepatellar bursa. The bursa was traversed. The knee was entered medial parapatellar dividing the quad tendon at the junction of the rectus femoris and the vastus medialis going 3 to 4 cm proximal to the superior pole of the patella. On the tibia, the soft tissues were divided down to the bone going 2 cm medial to the tibial tubercle and then up to the joint line. The joint had scant goldish synovial fluid. He had complete eburnation of bone on the medial femoral condyle, medial tibial plateau with osteophytes on both, osteophytes in the intercondylar notch, the trochlea and the lateral joint as well. The remains of the anterior horn of medial meniscus were removed. The anteromedial soft tissues on the tibia were elevated subperiosteally going around to the posteromedial corner of the knee, carefully preserving the MCL. Some medial synovectomy was completed. The lateral meniscus was carefully excised. The intercondylar notch osteophytes were removed. The ACL and PCL were uplifted from their femoral origins and the tibia was made so that it could be subluxated forward from under the femur. The proximal tibial cut was made first. Our goal here was to have a tibial surface that would be perpendicular to the long axis of the tibia removing a couple of millimeters on the medial side and a 10 to 12 mm on the lateral side and have a slight posterior slope to this cut. On the femoral side, we used the femoral intramedullary drill. The canal was suctioned to discourage embolization. The distal femoral cutting guide was applied with 6 degrees of valgus on #1 for slight flexion contracture and the distal femoral cut was completed. The femur was measured for a size 10. These cuts were completed and we then finished removal of the posterior horn of medial meniscus carefully preserving the MCL, the PCL, posterior horn of lateral meniscus. We had nice ligamentous balance in extension with a 10-mm block and in 90 degrees of flexion with a 10-mm block. The femur was completed with the intercondylar cutout. The femoral canal was then cleaned x6 with saline, suctioned empty, and a bone plug was inserted. The tibia was completed for a size G and the knee was articulated and extended with a G tibia, 10 articular surface and the 10 femur with full knee extension, stable ligaments in extension, and stable ligaments in 90 degrees of flexion. The patella was cut flat. The 38 was chosen. Three drill holes were made, these were undercut, and a lateral release was not necessary. The final components were open. The leg was exsanguinated, the tourniquet elevated to 375. The knee was cleaned with pulse saline in extension and then in flexion and the bony surfaces were all cleaned with pulse saline. All surfaces were dried. The cement was mixed and the components were cemented into position, patella followed by tibia followed by femur. Each component was impacted. Excess cement was removed and the knee was articulated and extended during the final hardening. Then, the knee was flexed, the tourniquet was deflated. We checked posteriorly for retained cement fragments. We infiltrated the pericapsular tissues with Marcaine 0.5% with epinephrine posteromedially, medially and laterally. The closure was then done and we irrigated with saline during the closure. The drains were brought out through superolateral suprapatellar pouch. The quad mechanism closed with interrupted #1 Vicryl in a vmhglk-fg-fcyar fashion, the same with the medial retinaculum more distally we closed with 0 Vicryl. The deep fascia and deep bursa closed with interrupted 0 Vicryl and then on the superficial subcu used 3-0 Vicryl and then antionette on the skin. The skin was washed and dried and covered with Betadine- soaked release followed by sterile gauze. The drains were treated the same way and then sterile Webril. A cryotherapy cuff was applied. ABD pads and a 6-inch Pablo bandage were loosely applied. The knee was completely extended and completely flexed several times during the closure to make sure we did not have anything tethered. The dorsalis pedis pulse was 2+ at the end of the case. The patient was returned to the recovery room in stable and satisfactory condition, having tolerated the procedure very well. [id number]/[facility] #: [id number] STEPHANIE
--- NOTE | 2018-05-26 16:25 | PN ---
Progress Note - Progress Note Date of Service: 05/26/18 Note: Patient seen at bedside POD [address] Sargent. Pain is well controlled. Denies CP, SOB, dizziness, nausea or history of DVT. Dressing is CDI, DF/PF intact, DP2+, sensation intact to light touch distally. Intends to go home tomorrow after goals are met with PT.
[2018-05-26] MEDS: traMADol TAB* 50 MG PO SCH ×2 (16:29→22:37)
[2018-05-26] MEDS: Acetaminophen TAB* 325 MG PO SCH (16:29)
[2018-05-26] MEDS: ceFAZolin 1 GM in Dextrose (*) 1 GM/50 ML BAG IVPB SCH (16:34)
[2018-05-26] MEDS: Aspirin TAB* 325 MG PO SCH (18:04)
[2018-05-26] MEDS: Atorvastatin* 10 MG TAB PO SCH (22:37)
[2018-05-26] MEDS: amLODIPine TAB* 5 MG PO SCH (22:37)
[2018-05-26] MEDS: Docusate CAP* 100 MG PO SCH (22:37)
[2018-05-26] MEDS: Multivitamins/Minerals TAB PO SCH (22:37)
[2018-05-26] MEDS: ACIDOPH PARACASEI B LACTIS PO SCH (22:38)
[2018-05-26] MEDS: Spironolactone/HCTZ 25-25 MG* 1 TAB PO SCH (22:41)
[2018-05-27] MEDS: ceFAZolin 1 GM in Dextrose (*) 1 GM/50 ML BAG IVPB SCH ×2 (00:14→08:06)
[2018-05-27] MEDS: Acetaminophen TAB* 325 MG PO SCH ×4 (00:15→23:51)
[2018-05-27] MEDS: oxyCODONE TAB* 5 MG TAB PO PRN ×3 (00:16→11:41)
[2018-05-27] MEDS: traMADol TAB* 50 MG PO SCH ×4 (04:15→21:50)
[2018-05-27 06:13] LABS: Hematocrit 34 % (42-52); Hemoglobin 11.6 g/dl (14.0-18.0); Mean Platelet Volume 6.3 fL (7.4-10.4); Platelet Count 257 10^3/ul (150-450)
[2018-05-27 06:30] LABS: Calcium 8.3 mg/dL (8.6-10.3); EGFR Non-African American 79.3 (>60); Potassium 3.9 mmol/L (3.5-5.0)
--- NOTE | 2018-05-27 08:04 | PN ---
Progress Note - Progress Note Date of Service: 05/27/18 SOAP: Subjective: []Pt seen at bedside. He feels very well and desires DC home today. Pain is well controlled. Denies CP, SOB, dizziness or nausea. Objective: []General: NAD, well appearing LLE: 2 drains pulled from left knee with tip intact and tolerated well by patient. Thigh is soft, DF/PF intact, DP2+, sensation intact to light touch distally Calves supple and nontender without erythema, edema or palpable cords Assessment: []POD 1 sp LTK Plan: []WBAT PT/OT ASA 325 qd x 30 days Desires DC home today, DC as long as able to urinate and meets goals with PT Will need fu sodium recheck within 3 days Vital Signs Temp 98.3 F 05/27/18 03:54 Pulse 67 05/27/18 03:54 Resp 18 05/27/18 07:43 BP 125/68 05/27/18 03:54 Pulse Ox 100 05/27/18 07:43 Intake & Output 05/26/18 05/27/18 05/27/18 18:59 06:59 18:59 Intake Total 1140 2025 Output Total 1400 3090 150 Balance -260 -1065 -150 Intake: IV Fluids 900 1045 ABX - CEFAZOLIN 55 LR 900 990 Oral 240 980 Output: Hemovac Amount #1 240 Garcia 1400 2850 150 Laboratory Last Values Hgb 11.6 g/dl (14.0-18.0) L 05/27/18 06:07 Hct 34 % (42-52) L 05/27/18 06:07 Plt Count 257 10^3/ul (150-450) 05/27/18 06:07 MPV 6.3 fL (7.4-10.4) L 05/27/18 06:07 Sodium 131 mmol/L (135-145) L 05/27/18 06:07 Potassium 3.9 mmol/L (3.5-5.0) 05/27/18 06:07 Chloride 100 mmol/L (101-111) L 05/27/18 06:07 Carbon Dioxide 28 mmol/L (22-32) 05/27/18 06:07 Anion Gap 3 mmol/L (2-11) 05/27/18 06:07 BUN 15 mg/dL (6-24) 05/27/18 06:07 Creatinine 0.94 mg/dL (0.67-1.17) 05/27/18 06:07 Est GFR ( Amer) 96.0 (>60) 05/27/18 06:07 Est GFR (Non-Af Amer) 79.3 (>60) 05/27/18 06:07 BUN/Creatinine Ratio 16.0 (8-20) 05/27/18 06:07 Glucose 121 mg/dL (70-100) H 05/27/18 06:07 Calcium 8.3 mg/dL (8.6-10.3) L 05/27/18 06:07
[2018-05-27] MEDS: Docusate CAP* 100 MG PO SCH ×2 (08:06→21:07)
[2018-05-27] MEDS: Lactated Ringers 1000 ML Bag* 1,000 ML IV SCH (09:43)
[2018-05-27] MEDS: Magnesium Hydroxide LIQ* 30 ML UDC PO PRN ×2 (10:08→21:10)
--- NOTE | 2018-05-27 10:20 | PN ---
Progress Note - Progress Note Date of Service: 05/27/18 Note: POD 1. VSStable. X-ray left knee post op all satisfactory. Intake and output satisfactory. Hct 34%. Na 131. Awake, alert, coorperative and responsive. Breathing easily. Patient seen @ 0700. Able to leg raise left. Moves left ankle up and down. Stable and doing well. Home today.
--- NOTE | 2018-05-27 14:55 | DS ---
DISCHARGE SUMMARY: DATE OF ADMISSION: 05/26/18 DATE OF DISCHARGE: 05/27/18 ATTENDING SURGEON: Dr. Sargent * (DICTATED BY ELISABETH BRITO) PRE-OP DIAGNOSIS: Severe end-stage osteoarthritis of the left knee. OPERATIVE PROCEDURE: Left total knee arthroplasty. HISTORY: Mr. Covington is a 72-year-old male with years of increasingly severe left knee pain. He failed conservative management and elected to undergo a left total knee arthroplasty. HOSPITAL COURSE: The patient was admitted to [facility] on . He underwent a left total knee arthroplasty without complication. Postop day 1, he was well appearing, in no acute distress. Dressing was changed. Incision was clean, dry, and intact without erythema or discharge. Dorsiflexion and plantarflexion intact. DP pulse 2+. Sensation intact to light touch distally. Two drains were pulled from the left knee with tip intact , tolerated well by the patient. Lab studies showed hemoglobin 11.6, hematocrit 34, sodium 131. MEDICATIONS: Patient's medications include: 1. Simvastatin 20 mg. 2. Multivitamin 1 cap. 3. Probiotic 1 cap p.o. at bedtime. 4. Spironolactone/hydrochlorothiazide 25/25 p.o. at bedtime. 5. Amlodipine 10 mg p.o. at bedtime. 6. Aspirin 81 mg p.o. at bedtime. 7. Acetaminophen 975 mg p.o. q.8 hours p.r.n. 8. Aspirin 325 mg p.o. q.24 hours. 9. Docusate 100 mg p.o. b.i.d. 10. Oxycodone 10 mg p.o. q.4 hours p.r.n. 11. Aspirin 81 mg tabs to be resumed after the 325 mg tab is done. DISCHARGE PLAN: The patient will be weightbearing as tolerated. Make appointment with ortho office to remove the antionette in 10 to 12 days. Aspirin 325 mg daily for 30 days; hold your dose of aspirin 81 mg while you are on the 325, resume thereafter. Sodium recheck within 3 days. Pain control: Oxycodone 5 mg 1 to 2 tabs every 4 to 6 hours as needed for pain, max daily dose of 10. Follow up with Dr. Sargent in 4 to 6 weeks. DISPOSITION: He was discharged to home on 05/27/18. JODI TAYLOR, ELISABETH [id number]/[facility] #: [id number] [facility]GE[facility] STATE HOSPITALErnesto
[2018-05-27] MEDS: Aspirin TAB* 325 MG PO SCH (18:16)
[2018-05-27] MEDS: Multivitamins/Minerals TAB PO SCH (21:06)
[2018-05-27] MEDS: amLODIPine TAB* 5 MG PO SCH (21:07)
[2018-05-27] MEDS: ACIDOPH PARACASEI B LACTIS PO SCH (21:07)
[2018-05-27] MEDS: Spironolactone/HCTZ 25-25 MG* 1 TAB PO SCH (21:07)
[2018-05-27] MEDS: Atorvastatin* 10 MG TAB PO SCH (21:07)
[2018-05-28] MEDS: oxyCODONE TAB* 5 MG TAB PO PRN ×2 (02:55→06:44)
[2018-05-28] MEDS: Ondansetron ODT TAB* 4 MG PO PRN ×2 (02:56→08:45)
[2018-05-28] MEDS: traMADol TAB* 50 MG PO SCH ×2 (04:01→10:13)
[2018-05-28 05:22] LABS: Hematocrit 29 % (42-52); Hemoglobin 10.2 g/dl (14.0-18.0); Mean Platelet Volume 6.2 fL (7.4-10.4); Platelet Count 200 10^3/ul (150-450)
[2018-05-28] MEDS: Docusate CAP* 100 MG PO SCH (08:41)
[2018-05-28] MEDS: Acetaminophen TAB* 325 MG PO SCH (08:41)
--- NOTE | 2018-05-28 10:41 | PN ---
Progress Note - Progress Note Date of Service: 05/28/18 SOAP: Subjective: []Pt seen at bedside. He is feeling well today without CP, SOB, dizziness, nausea, headache or confusion. Left knee pain is well controlled. Objective: [] General: NAD, well appearing, carrying on appropriate conversation and desires DC home. LLE: left knee dressing changed, incision CDI. Thigh is soft, DF/PF intact, DP2+ , sensation intact to light touch distally Calves supple and nontender without erythema, edema or palpable cords Assessment: []POD 2 sp LTK Plan: []WBAT PT/OT ASA 325 qd x 30 days DC home today hyponatremia discussed with hospitalist: Check TSH before dc, Fluid restrict to 1L today, check morning sodium and cortisol tomorrow with PCP follow up Vital Signs Temp 98.7 F 05/28/18 07:46 Pulse 73 05/28/18 07:46 Resp 18 05/28/18 10:13 BP 153/68 05/28/18 07:46 Pulse Ox 94 05/28/18 08:00 Intake & Output 05/27/18 05/28/18 05/28/18 18:59 06:59 18:59 Intake Total 2119 540 Output Total 1775 600 Balance 344 -60 Intake: IV Fluids 1886 LR 1886 IVPB 113 ABX - CEFAZOLIN 113 Oral 120 540 Output: Urine 825 600 Garcia 150 Straight Cath 800 Other: Estimated Void Large Large # Voids 1 Laboratory Last Values Hgb 10.2 g/dl (14.0-18.0) L 05/28/18 05:09 Hct 29 % (42-52) L 05/28/18 05:09 Plt Count 200 10^3/ul (150-450) 05/28/18 05:09 MPV 6.2 fL (7.4-10.4) L 05/28/18 05:09 Sodium 125 mmol/L (135-145) L 05/28/18 05:12 Potassium 3.9 mmol/L (3.5-5.0) 05/27/18 06:07 Chloride 100 mmol/L (101-111) L 05/27/18 06:07 Carbon Dioxide 28 mmol/L (22-32) 05/27/18 06:07 Anion Gap 3 mmol/L (2-11) 05/27/18 06:07 BUN 15 mg/dL (6-24) 05/27/18 06:07 Creatinine 0.94 mg/dL (0.67-1.17) 05/27/18 06:07 Est GFR ( Amer) 96.0 (>60) 05/27/18 06:07 Est GFR (Non-Af Amer) 79.3 (>60) 05/27/18 06:07 BUN/Creatinine Ratio 16.0 (8-20) 05/27/18 06:07 Glucose 121 mg/dL (70-100) H 05/27/18 06:07 Calcium 8.3 mg/dL (8.6-10.3) L 05/27/18 06:07
[2018-05-28 12:58] VITALS: BP 148/68
[2018-05-28 13:32] LABS: T4, Total 10.94 mcg/dL (6.09-12.23)
[2018-05-28 13:36] LABS: TSH (Thyroid Stimulating Horm) 1.96 mcIU/mL (0.34-5.60)
--- NOTE | 2018-05-28 21:00 | DS ---
DISCHARGE SUMMARY: ADDENDUM: DATE OF DISCHARGE: 05/28/18 HOSPITAL COURSE: The patient was seen at bedside on postop day#2. He was well appearing, in no acute distress. Dressing was changed. Incision was clean, dry and intact. The patient stayed overnight dueto urinary retentionand required straight cath 05/27/18; 05/28/18, he was urinating well on his own. Labs on postop day #2 included hemoglobin 10.2, hematocrit 29, sodium 125. Discussed hyponatremia with the hospitalist service who recommended checking a TSH prior to discharge. TSH was 1.96. Further recommendation was to limit the patient's fluid intake today to 1 L and to check a morning sodium as well as cortisol. This was ordered as an outpatient and the patient will follow up with his PCP tomorrow. He was asymptomatic. ELISABETH BRITO ADDENDUM: CONDITION OF PATIENT AT DISCHARGE: Stable. ELISABETH BRITO [id number]/[facility] #: [id number]/[facility] #: [id number] STEPHANIE
--- NOTE | 2018-06-01 09:45 | DS ---
DISCHARGE SUMMARY: DATE OF ADMISSION: DATE OF DISCHARGE: ADDENDUM: CONDITION OF PATIENT AT DISCHARGE: Stable. ELISABETH BRITO [id number]/[facility] #: [id number] MTDD
== END 2018-05-28 14:10 | disposition home or self-care (01) | DRG 470 ==
LOC: AA 05:32 → SSU 10:38
PROVIDERS: ADMIT Orthopaedic Surgery; ATTEND Orthopaedic Surgery
PROC: 0SRD0J9 Replacement of Left Knee Joint with Synthetic Substitute, Cemented, Open Approach (ICD-10-PCS; principal; 2018-05-26 07:30)
DX: M17.12 Unilateral primary osteoarthritis, left knee (principal); E87.1 Hypo-osmolality and hyponatremia; I10 Essential (primary) hypertension; Z96.651 Presence of right artificial knee joint; M21.162 Varus deformity, not elsewhere classified, left knee; J30.2 Other seasonal allergic rhinitis; R94.4 Abnormal results of kidney function studies; E66.9 Obesity, unspecified; E78.5 Hyperlipidemia, unspecified; M25.762 Osteophyte, left knee; N40.0 Benign prostatic hyperplasia without lower urinary tract symptoms; Z72.89 Other problems related to lifestyle; Z87.891 Personal history of nicotine dependence; Z98.52 Vasectomy status; Z86.010 Personal history of colon polyps; Z88.8 Allergy status to other drugs, medicaments and biological substances; Z68.35 Body mass index [BMI] 35.0-35.9, adult; Z79.82 Long term (current) use of aspirin
CPT/HCPCS: 36415; 80048; 84300; 84436; 84443; 85014; 85018; 85049; 88305; 88311; A9270-GY; C1776; G8978-GP-CJ; G8979-GP-CI; J0690; J1100; J2250; J2405; J2704; J2795

== ENCOUNTER 2018-06-08 15:01 | Emergency (ER) | payer MEDICARE, BC ==
--- OUTSIDE RECORDS SUMMARY | 2018-06-08 15:25 | XMS REPORT | Continuity of Care Document ---
:1945 External Reference #:[id number] Author Name Sasha Beckford Care Team Providers Name Role Phone Aiden Stark MD Primary Care Physician Unavailable Payers Date Identification Numbers Payment Provider Subscriber Policy Number: [id number] Medicare Ousmane Covington PayID: [id number] [address] [place] [address] Policy Number: [id number] [facility] Ousmane Covington PayID: [id number] [address] [place] [address] Advance Directives Description No Information Available Problems Date Description Provider Status Onset: 06/08/2018 Arthroplasty of knee Lukas Sargent M.D. Active Onset: 12/24/2017 Localized, primary osteoarthritis Lukas Sargent M.D. Active Family History Date Family Member(s) Observation Comments General Unknown Social History Type Date Description Comments Sex Unknown Lives With Spouse Occupation Unemployed ETOH Use Occasionally consumes alcohol Tobacco Use Start: Unknown End: Patient is a former smoker Unknown Smoking Status Reviewed: 06/08/18 Patient is a former smoker Exercise Type/Frequency Exercises regularly Allergies, Adverse Reactions, Alerts Description No Known Drug Allergies Medications Medication Date Status Form Strength Qnty SIG Indications Ordering Provider Aspirin Adult 05/27/ Active Tablets 325mg 30tab take 1 tab a Dirk 2019 s day for 4 Arie, weeks M.D. Oxycodone HCL 05/27/ Active Capsules 5mg 60cap 1 - 2 tabs by Dirk 2019 s mouth every 4 Arie, - 6 hours M.D. Colace 05/27/ Active Capsules 100mg 60cap take as Dirk 2019 s needed to Arie, stimulated M.D. bowel movement. Amlodipine / Active Tablets 10mg 1 by mouth Unknown Besylate 0000 every day Clobetasol / Active Lotion 0.05% use twice a Unknown Propionate 0000 day Simvastatin // Active Tablets 20mg 1 by mouth Unknown 0000 every day Spironolactone / Active Tablets 25-25mg 1 by mouth Unknown /Hydrochloroth 0000 every day iazide Probiotic / Active Capsules 1 by mouth Unknown Acidophilus 0000 every day Multivitamin / Active Tablets Unknown Adults 0000 Benadryl / [...] Tablets 50mg 56tab 1-2 tablets Dirk 2017 - s by mouth Arie, 03/01/ every 4- 6 M.D. 2018 hours as needed pain. max 8 per day Oxycodone HCL 01/07/ Hx Tablets 5mg 10tab 1 tab every Dirk 2018 - s 4-6 hours as Arie, 03/01/ needed for M.D. 2018 pain mdd 2. July alternate with tramadol. Wean off as soon as possible Aspirin 1017/ Hx Tablets 325mg 30tab 1 tab every Dirk 2018 - s 24 hours for Arie, days M.D. 2018 Aspirin Adult // Hx Unknown Low Dose 0000 - 2018 Ibuprofen 200 / Hx Tablets 200mg 400-600mg Unknown 0000 - every 6 hours 05/19/ as needed for 2019 pain. Medications Administered in Office Medication Date Status Form Strength Qnty SIG Indications Ordering Provider Depomedrol Administered Injection Dirk Arie, 40MG 018 M.D. Depomedrol Administered Injection Dirk Arie, 40MG 018 M.D. Depomedrol Administered Injection Dirk Arie, 40MG 018 M.DBhaskar Depomedrol Administered Injection Leda 40MG 018 FRANCIA Marie Depomedrol Administered Injection Leda 40MG 018 FRANCIA Marie Immunizations Description No Information Available Vital Signs Date Vital Result Comment 06/08/2018 10:51am Height 68.50 inches 5'8.50" Weight 243.00 lb BP Systolic 132 mmHg BP Diastolic 78 mmHg Respiratory Rate 20 /min Body Temperature 97.8 F Pain Level 5 BMI (Body Mass Index) 36.4 kg/m2 05/20/2018 10:26am Height 68.50 inches 5'8.50" Weight [...] Date Facility Test Result H/L Range Note Laboratory test [facility] Cortisol 20.77 g/dL 1 finding [address] [place], [place] [id number] [phone] Inr/Protime [facility] Inr 0.86 N 0.77-1.02 [address] [place], [place] [address] [phone] Laboratory test [facility] Partial 27.3 seconds N 26.0-36.3 3 finding [address] [place] [address] PTT [phone] Urine Culture And [facility] Urine Culture SEE RESULT 4 Sensitivities [address] [place], [place] [address] [phone] Type & Screen [facility] Patient Blood A Positive [address] Type [place], [place] [address] [phone] Antibody Screen NEGATIVE Comp Metabolic Panel 05/22/2018 [facility] Sodium 138 mmol/L N 135-[address] [place], [place] [address] [phone] Potassium 4.2 mmol/L N 3.5-5.0 Chloride 102 [...] Egfr Non- 43.6 >60 Egfr 52.7 >60 5 CBC Auto Diff 05/22/2018 [facility] White Blood 5.6 10^3/uL N 3.5-10.[address] [place] [address] [phone] Red Blood Count 4.53 10^6/uL N 4.00-5.40 [...] % Nucleated Red Blood Cells % 0 Urinalysis Profile 05/22/2018 [facility] Urine Color Straw [address] [place] [address] [phone] Urine Appearance Clear Urine Specific [place] 1.009 Low 1.010-1.030 Urine pH 6.0 N 5-9 Urine Urobilinogen Negative Negative Urine Ketones Negative Negative Urine Protein Negative Negative Urine Leukocytes Negative Negative Urine Blood Negative Negative Urine Nitrite Negative Negative Urine Bilirubin Negative Negative Urine Glucose Negative Negative CBC Auto Diff 12/24/2017 [facility] White Blood 5.7 10^3/uL N 3.5-10.[address] [place] [address] [phone] Red Blood Count 4.56 10^6/uL N 4.00-5.40 [...] Blood Cells % 0.1 Urinalysis Profile 12/24/2017 [facility] Urine Color Straw [address] [place] [address] [phone] Urine Appearance Clear Urine Specific [place] 1.004 Low 1.010-1.030 Urine pH 5.0 N 5-9 Urine Urobilinogen Negative Negative Urine Ketones Negative Negative Urine Protein Negative Negative Urine Leukocytes Negative Negative Urine Blood Negative Negative Urine Nitrite Negative Negative Urine Bilirubin Negative Negative Urine Glucose Negative Negative Comp Metabolic Panel 12/24/2017 [facility] Sodium 137 mmol/L N 135-145 [address] [place] [address] [phone] Potassium 4.2 mmol/L N 3.5-5.0 Chloride 102 [...] Egfr Non- 65.5 >60 Egfr 79.2 >60 7 Inr/Protime 12/24/2017 [facility] Inr 0.89 N 0.77-1.[address] [place] [address] [phone] Laboratory test 12/24/2017 [facility] Partial 27.7 seconds N 26.0-36.[address] [place] [address] PTT [phone] Type & Screen 12/24/2017 [facility] Patient A Positive [address] Blood Type [place] [id number] [phone] Antibody Screen NEGATIVE Urine Culture And 12/24/2017 [facility] Urine Culture SEE RESULT [address] [place] [address] [phone] 1 AM 8.7-22.4 PM <10 2 AA 3/5 3 AA 35 4 SEE RESULT BELOW Name: OUSMANE COVINGTON SR : [address]: Lukas Sargent MD Acct: [id number] Unit: [id number] AGE: 72 Location: PAT Re05/22/18 SEX: M Status: REG REF SPEC: [id number] WATSON: 05/22/18-[address]: Lukas Saregnt MD REQ: [id number] RECD: 05/22/18 STATUS: COMP _ SOURCE: URINE SPDESC: ORDERED: Urine Culture COMMENTS: AA05/26 QUERIES: Urine Source: Clean Catch Procedure Result Reported Site Urine Culture Final 05/23/18- 1230 ML Few Enterobacteriacae; possible contamination. * ML - Main Lab . END OF REPORT DEPARTMENT OF PATHOLOGY, [address] [place] [address] Castillo Coleman M.D. Director [facility] # [id number] 5 Because ethnic data is not always readily [...] 15-29 5 Kidney failure <15 (or dialysis) 6 01/06 7 Because ethnic data is not always readily [...] 15-29 5 Kidney failure <15 (or dialysis) 8 01/06 9 SEE RESULT BELOW Name: OUSMANE COVINGTON SR : [address]: Lukas Sargent MD Acct: [id number] Unit: [id number] AGE: 72 Location: [facility] Re12/24/17 SEX: M Status: REG REF SPEC: [id number] WATSON: 12/24/[address] [facility] [address]: Lukas Sargent MD REQ: [id number] RECD: 12/24/17 STATUS: GARY HALE DR: Aiden Stark MD _ SOURCE: URINE SPDESC: ORDERED: Urine Culture COMMENTS: AA 01/06 QUERIES: Urine Source: Clean Catch Procedure Result Reported Site Urine Culture Final 12/25/17- 1155 ML No Growth (<1,000 CFU/mL) * ML - Main Lab . END OF REPORT DEPARTMENT OF PATHOLOGY, [address] [place] [address] Castillo Coleman M.D. Director [facility] # [id number] Procedures Date Code Description Status 05/26/2018 85071 TKR Total Knee Replacement Completed 05/26/2018 87287 TKR Total Knee Replacement Completed 03/02/201806964 Inject/Drain Joint/Bursa Major W/O US Completed 01/06/2018 44249 TKR Total Knee Replacement Completed 01/06/2018 49421 TKR Total Knee Replacement Completed 12/24/2017 28700 EKG, Interpretation Only Completed 10/06/201741382 Inject/Drain Joint/Bursa Major W/O US Completed 06/16/2017 Inject/Drain Joint/Bursa Major W/O US Completed Encounters Type Date Location Provider Dx Diagnosis Office Visit 04/01/2018 [facility] Lukas Sargent M.D. M17.12 Unilateral 10:15a [facility] primary osteoarthritis, left knee Office Visit 01/06/2018 [facility] Z47.89 Encounter for 10:43a [facility]lisa Negrete PA other orthopedic Hospital[facility] aftercare Z96.651 Presence of right artificial knee joint I10 Essential (primary) hypertension E78.5 Hyperlipidemia, unspecified Office Visit 12/24/2017 [facility] Sargent, M17.11 Unilateral primary 8:30a Services Of M.D. osteoarthritis, right [facility] knee M17.12 Unilateral primary osteoarthritis, left knee Office Visit 10/06/2017 [facility]ango7.11 Unilateral primary 10:15a Services Of M.D. osteoarthritis, right [facility] knee M17.12 Unilateral primary osteoarthritis, left knee Office Visit 06/16/2017 [facility] Tarango7.11 Unilateral primary 9:00a Services Of M.D. osteoarthritis, right [facility] knee M17.12 Unilateral primary osteoarthritis, left knee Plan of Treatment Future Appointment(s):06/22/2018 10:15 am - Lukas Sargent M.D. at [facility]06/08/2018 - Lukas Sargent M.D.Z96.652 Presence of left artificial knee jointNew Labs:Electrolytes, Ordered: 06/08/18Follow up:Follow up : 2 weeks Keep left knee and blister area clean with soap and water, cover with neosporin and gauze Concerned regarding possible clot left leg so will do the testing today or tomorrow and we will call.I82.492 Acute embolism and thrombosis of other specified deep vein oFollow up:Testing jlegodcU94.1 Hypo- osmolality and hyponatremiaFollow up:Follow up:
--- NOTE | 2018-06-08 16:21 | ED ---
Lower Extremity - HPI Summary HPI Summary: This patient is a 72 year old M presenting to ED with a chief complaint of a blood clot in the L lower leg since earlier today at Urgent Care when they did an US. The CC is described as swelling of the L lower leg that has increased since this morning. He saw Dr. Sargent today to have his antionette removed from his knee replacement surgery done 2 weeks ago. The patient rates the pain 5/10 in severity. Symptoms aggravated by nothing. Symptoms alleviated by nothing. Patient denies CP, SOB, fever, and chills. The patient is on ASA every day. - History of Current Complaint Chief Complaint: EDExtremityLower Stated Complaint: BLOOD CLOT PER PT Time Seen by Provider: 06/08/18 15:03 Hx Obtained From: Patient Onset of Pain: Immediate Onset/Duration: Hours Severity Initially: Moderate Severity Currently: Moderate Pain Intensity: 5 Pain Scale Used: 0-10 Numeric Timing: Constant Location: Is Discrete @ - L lower leg Associated Signs And Symptoms: Positive: Swelling Aggravating Factor(s): Nothing Alleviating Factor(s): Nothing - Allergies/Home Medications Allergies/Adverse Reactions: Allergies Allergy/AdvReac Type Severity Reaction Status Date / Time lisinopril Allergy Rash And Verified 06/08/18 15:10 Itching PMH/Surg Hx/FS Hx/Imm Hx Cardiovascular History: Reports: Hx Hypertension Respiratory History: Reports: Hx Asthma GI History: Reports: Other GI Disorders - constipation Musculoskeletal History: Reports: Hx Arthritis - hands, ariel knees Sensory History: Reports: Hx Contacts or Glasses Denies: Hx Hearing Aid Opthamlomology History: Reports: Hx Contacts or Glasses - Cancer History Hx Chemotherapy: No - Surgical History Surgery Procedure, Year, and Place: right total knee replacement 12/2017 Hx Anesthesia Reactions: No Infectious Disease History: No Infectious Disease History: Denies: Traveled Outside the [place] in Last 30 Days - Family History Known Family History: Negative: Hypertension, Diabetes - Social History Alcohol Use: None Substance Use Type: Reports: None Hx Tobacco Use: Yes Smoking Status (MU): Former Smoker Amount Used/How Often: 2 packs a day for 20 yrs Review of Systems Negative: Fever, Chills Negative: Chest Pain Negative: Shortness Of Breath Positive: Edema - blood clot in the L lower leg with swelling All Other Systems Reviewed And Are Negative: Yes Physical Exam - Summary Physical Exam Summary: Constitutional: Well-developed, Well-nourished, Alert. (-) Distressed Skin: Warm, Dry HENT: Normocephalic; Atraumatic Eyes: Conjunctiva normal Neck: Musculoskeletal ROM normal neck. (-) JVD, (-) Stridor, (-) Tracheal deviation Cardio: Rhythm regular, rate normal, Heart sounds normal; Intact distal pulses; The pedal pulses are 2+ and symmetric. Radial pulses are 2+ and symmetric. (-) Murmur Pulmonary/Chest wall: Effort normal. (-) Respiratory distress, (-) Wheezes, (-) Rales Abd: Soft, (-) tenderness, (-) Distension, (-) Guarding, (-) Rebound Musculoskeletal: 2-3+ pitting edema in LLE and bruising Lymph: (-) Cervical adenopathy Neuro: Alert, Oriented x3 Psych: Mood and affect Normal Triage Information Reviewed: Yes Vital Signs On Initial Exam: Initial Vitals Temp Pulse Resp BP Pulse Ox 97.4 F 83 16 148/92 100 06/08/18 15:07 06/08/18 15:07 06/08/18 15:07 06/08/18 15:07 06/08/18 15:07 Vital Signs Reviewed: Yes Diagnostics - Vital Signs Vital Signs Temp Pulse Resp BP Pulse Ox 06/08/18 15:07 97.4 F 83 16 148/92 100 - Laboratory Result Diagrams: 06/08/18 18:05 Lab Statement: Any lab studies that have been ordered have been reviewed, and results considered in the medical decision making process. Lower Extremity Course/Dx - Course Assessment/Plan: This patient is a 72 year old M presenting to ED with a chief complaint of a blood clot in the L lower leg since earlier today at Urgent Care when they did an US. Upon physical exam, the patient exhibits 2-3+ pitting edema in LLE and bruising. In the ED course, the patient was given Xarelto. Blood work reveals elevated MCH and plt count, and decreased RBC, Hgb, Hct, and MPV. He is diagnosed with DVT. He will be discharged home with a rx for Xarelto. He will follow up with his PCP and Dr. Sargent, orthopedics, and return to the ED for any new or worsening symptoms. He understands and agrees with this plan. - Diagnoses Provider Diagnoses: DVT (deep venous thrombosis) Discharge - Sign-Out/Discharge Documenting (check all that apply): Patient Departure - discharge Patient Received Moderate/Deep Sedation with Procedure: No - Discharge Plan Condition: Good Disposition: HOME Prescriptions: Rivaroxaban TAB(*) [Xarelto 15 mg(*)] 15 mg PO BID #42 tab Patient Education Materials: Deep Vein Thrombosis (ED) Print Language: MEXICAN Referrals: Aiden Stark MD [Primary Care Provider] - Lukas Sargent MD [Medical Doctor] - - Billing Disposition and Condition Condition: GOOD Disposition: Home - Attestation Statements Document Initiated by Scribe: Yes Documenting Scribe: Moris Arevalo Provider For Whom Scribe is Documenting (Include Credential): Kenia Clarke Scribe Attestation: Moris Sierra, scribed for Kenia Leon on 06/08/18 at 2117. Scribe Documentation Reviewed: Yes Provider Attestation: The documentation as recorded by the Moris rosa accurately reflects the service I personally performed and the decisions made by Kenia [place] Status of Scribe Document: Viewed
[2018-06-08 18:19] LABS: ABS Basophils 0.1 10^3/ul (0-0.2); ABS Eosinophils 0.2 10^3/ul (0-0.6); ABS Lymphocytes 1.5 10^3/ul (1.0-4.8); ABS Monocytes 0.7 10^3/ul (0-0.8); ABS Neutrophils 6.2 10^3/ul (1.5-7.7); ABS Nucleated RBC 0 10^3/ul; Eosinophil % 1.9 %; Hematocrit 31 % (36-46); Hemoglobin 10.7 g/dL (14.0-18.0); Lymphocyte % 17.6 %; Mean Corpuscular HGB Conc 35 g/dL (31-36); Mean Corpuscular Hemoglobin 32 pg (27-31); Mean Corpuscular Volume 92 fL (80-94); Mean Platelet Volume 5.9 fL (7.4-10.4); Nucleated Red Blood Cells % 0; Platelet Count 469 10^3/uL (150-450); Red Blood Count 3.37 10^6 /uL (4.18-5.48); Red Cell Distribution Width 14 % (10.5-15); White Blood Count 8.7 10^3/uL (3.5-10.8)
[2018-06-08 18:26] LABS: INR 0.96 (0.77-1.02)
[2018-06-08] MEDS ORDERED: Rivaroxaban TAB(*) 15 MG PO ONE (18:39)
[2018-06-08 19:11] VITALS: BP 128/76
== END 2018-06-08 19:10 | disposition home or self-care (01) ==
LOC: ED 15:01
DX: I82.4Z2 Acute embolism and thrombosis of unspecified deep veins of left distal lower extremity (principal); R60.9 Edema, unspecified; I10 Essential (primary) hypertension; Z87.891 Personal history of nicotine dependence; Z96.652 Presence of left artificial knee joint
CPT/HCPCS: 36415; 85025; 85610; 99282